=== PATIENT | female | born 1945 | race Caucasian/White ===

== ENCOUNTER 2016-09-07 09:36 | Inpatient (IN) ==
[2016-09-07 10:34] LABS: URINE SOURCE CLEAN CATCH
[2016-09-07 10:38] LABS: BILIRUBIN URINE SMALL (NEGATIVE); BLOOD URINE TRACE (NEGATIVE); COLOR YELLOW; GLUCOSE URINE NEGATIVE (NEGATIVE); LEUKOCYTES URINE MODERATE (NEGATIVE); NITRITE URINE NEGATIVE (NEGATIVE); PROTEIN URINE 30 mg/dL (NEGATIVE); SP GRAVITY URINE 1.018; TURBIDITY URINE HAZY (CLEAR); URINE MICRO REVIEW NEEDED? YES; UROBILINOGEN URINE NORMAL (NORMAL)
[2016-09-07 10:44] LABS: UR EPITHELIAL CELLS <10 /HPF (<10); URINE BACTERIA NEGATIVE /HPF; URINE CULTURE NEEDED? YES; URINE RBC 20-40 /HPF (<10); URINE WBC TNTC /HPF (<10)
[2016-09-07] MEDS ORDERED: VANCOMYCIN 1 GM/NS 1 GM/250 ML IVPB IV ONE (11:04)
[2016-09-07] MEDS ORDERED: GENTAMICIN 60 MG in NS 50 ML IV ONE (11:04)
[2016-09-07] MEDS ORDERED: NS 1,000 ML IV ONE (11:04)
[2016-09-07] MEDS ORDERED: ZOFRAN IV ONE (11:05)
[2016-09-07] MEDS ORDERED: MORPHINE IV ONE (11:05)
[2016-09-07 11:44] LABS: EOS# 0.01 X1000 (0.0-0.7); EOS% 0.1 % (0.0-10.0); HEMATOCRIT 27.7 % (37.0-47.0); HEMOGLOBIN 9.4 g/dL (12.0-16.0); IMM GRAN# 0.02 X1000 (0.0-0.04); IMM GRAN% 0.3 % (0.0-0.5); LYMPH# 0.18 X1000 (1.2-3.4); LYMPH% 2.4 % (20.5-51.1); MANUAL DIFF NEEDED? NO; MCH 34.4 PG (27-31); MCHC 33.9 g/dL (33-37); MCV 101.5 FL (81-99); MONO# 0.66 X1000 (0.11-0.59); MONO% 8.7 % (1.7-9.3); MPV 10.4 FL (7.4-10.4); NEUT% 88.5 % (42.2-75.2); PLT 104 X1000 (130-400); RBC 2.73 XMIL (4.2-5.4)
[2016-09-07 12:00] LABS: ALBUMIN 3.1 g/dL (3.5-5.0); POTASSIUM 3.1 mmol/L (3.5-5.1); TOTAL BILIRUBIN 0.72 mg/dL (0.20-1.00); TOTAL PROTEIN 5.4 g/dL (6.3-8.3)
[2016-09-07 12:12] LABS: CALCIUM 14.2 mg/dL (8.8-10.2)
--- NOTE | 2016-09-07 12:28 | PROVIDER DOCUMENTATION ---
This chart was entered by Drake Patel Scribe, acting as scribe for Jose Alberto Stapleton MD. HPI-General Adult - General Chief Complaint: Back Pain Stated Complaint: lower back pain Time Seen by Provider: 09/07/16 10:23 Source: patient Allergies/Adverse Reactions: Patient Allergies Allergy/AdvReac Type Severity Reaction Status Date / Time No Known Allergies Allergy Verified 09/07/16 09:54 Home Medications: Home Medication List Medication Instructions Recorded Confirmed Last Taken Type Levothyroxine [Synthroid] 112 microgm PO DAILY 02/20/13 09/03/16 09/02/16 History Allopurinol 300 mg PO BID 12/09/15 09/03/16 09/02/16 History Losartan [Cozaar] 100 mg PO DAILY 12/09/15 09/03/16 12/11/15 19:00 History Metoprolol Succinate E.r. [Toprol 50 mg PO DAILY 12/09/15 09/03/16 12/12/15 04: 00 History Xl] SIMVAstatin [Zocor] 40 mg PO QHS 12/09/15 09/03/16 09/02/16 History Hydrocodone/APAP 5 mg/325 mg 1 each PO Q6H PRN PRN #15 tablet 12/12/15 09/03/16 09/02/16 Rx [Arbon-5] Ciprofloxacin HCl [Cipro] 500 mg PO BID #20 tablet 09/03/16 Unknown Rx Ondansetron HCl [Zofran] 4 mg PO Q4H PRN PRN #14 tablet 09/03/16 Unknown Rx Oxycodone HCl 1 tab PO Q4-6H PRN PRN 09/03/16 09/03/16 09/03/16 History Oxycodone HCl/Acetaminophen 1 each PO Q4-6H PRN PRN #16 tablet 09/03/16 Unknown Rx [Percocet 10-325 mg Tablet] Tamsulosin [Flomax] 0.4 mg PO DAILY #04 capsule 09/03/16 Unknown Rx - History of Present Illness -Gen Adult Nature of Presenting Problems: patient is a 70 y/o F that presents to the ER with worsening back pain and abdominal pain with n/v that began 5 days ago but gotten worse over the past few days. patient was seen 4 days ago, dx with kidney stone, colitis, and uti. Patient was given antibiotic, it was changed last night due to culture report but unable to get rx yet. She has lost appetite and decreased in oral intake. She is followed by for for Large B-cell lymphoma Stage IV. Location of Pain/Injury: reports: abdomen, back Quality of Pain: reports: aching, dull Severity: reports: moderate Onset/Duration: reports: gradual, 3 days ago Timing: reports: still present, getting worse Context/Activities at Onset: reports: none Modifying Factors: worse with: movement, palpation Associated Symptoms: reports: back/neck pain, loss of appetite, nausea, vomiting , weakness. denies: chest pain, diarrhea, fever/chills, genitourinary problems , shortness of breath Recently seen or treated by another doctor?: Yes Review of Systems - Adult - REVIEW OF SYSTEMS - ADULT Constitutional: denies: chills, fever Eyes: reports: no symptoms reported Ears, Nose, Mouth & Throat: reports: no symptoms reported Cardiovascular: denies: chest pain, palpitations Respiratory: denies: cough, shortness of breath, wheezing Gastrointestinal: reports: nausea, poor appetite, vomiting. denies: abdominal pain, diarrhea Genitourinary: denies: dysuria, frequency, hematuria Musculoskeletal: reports: back pain, muscle weakness. denies: joint swelling Integumentary: reports: no symptoms reported Neurological: denies: dizziness/vertigo, headache/migraines, syncope Psychiatric: reports: no symptoms reported Endocrine: reports: no symptoms reported Hematologic/Lymphatic: reports: no symptoms reported Allergic/Immunologic: reports: no symptoms reported All Other Systems: Reviewed and Negative Past History - Adult - PAST MEDICAL HISTORY-ADULT Review of Records: reports: Old Records Reviewed, Nursing Assessment Review, Medications Reviewed Cardiovascular: reports: HTN Genitourinary: reports: kidney stones Endocrine/Immune: reports: Lymphoma (with METs to the back), thyroid disorder ( hypo) - PRIOR SURGERIES/PROCEDURES Surgical/Procedure History: reports: hysterectomy, indwelling device (port a cath), orthopedic (extremity) (right carpal tunnel), back/neck, other (right carotid) - IMMUNIZATION STATUS Childhood Immunizations: See Nurse Assessment Flu Vaccine: See Nurse Assessment - FAMILY HISTORY Family History: reviewed, not pertinent - SOCIAL HISTORY Smoking: quit greater than 1 year, cigarettes Living Situation: family Physical Exam-General - PHYSICAL EXAM-ADULT Initial Vital Signs Reviewed: Yes - CONSTITUTIONAL General Appearance: alert, mild distress, moderate distress, other (ill appearing) - EYES Eyes: PERRL/EOMI, pale conjunctivae - HEAD, EARS, NOSE, MOUTH & THROAT HENMT: normocephalic/atraumatic, pharynx normal, other (slight dry oral mucosa) - NECK Neck: full range of motion, normal inspection - RESPIRATORY Respiratory: lungs clear, normal breath sounds, no respiratory distress, no accessory muscle use - CARDIOVASCULAR Cardiovascular: regular rate, rhythm, no edema, no murmur - GASTROINTESTINAL (ABDOMEN) Abdominal Exam: normal bowel sounds, soft, no organomegaly, no pulsatile mass, tenderness (diffusely generalized), other (abdominal bruit noted and palpated) - MUSCULOSKELETAL Extremity: normal range of motion, normal inspection, no pedal edema - SKIN Integumentary: normal color, warm/dry - NEUROLOGIC Neurologic: netsuite developer II-XII nml as tested, no motor/sensory deficits - PSYCHIATRIC Psych/Mental Status: normal mood/affect, normal thought content, normal thought process, oriented x 3 Progress - PLAN OF CARE/RESULTS Progress/Plan/Lab Results: Vital Signs - 8 hr 09/07/16 09:50 09/07/16 10:38 Temperature 97.7 F Pulse Rate 79 93 H Respiratory Rate 14 18 Blood Pressure 116/53 139/63 O2 Sat by Pulse Oximetry 90 L 99 Laboratory Results - last 24 hr 09/07/16 10:25 Urine Source CLEAN CATCH Urine Color YELLOW Urine Turbidity HAZY Urine pH 5.0 Ur Specific [place] 1.018 Urine Protein 30 A Ur Glucose (Stick) NEGATIVE Ur Ketones (Stick) TRACE A Urine Blood TRACE A Urine Nitrite NEGATIVE Urine Bilirubin SMALL A Urobilinogen Dipstick NORMAL Urine Leukocytes MODERATE A Urine WBC (Auto) TNTC A Urine RBC (Auto) 20-40 A U Epithel Cells (Auto) <10 Urine Bacteria (Auto) NEGATIVE Orders Category Date Time Status UA NIMS W/REFLEX CULT [URINALYSIS] Stat Lab 09/07/16 10:25 Results URINE CULTURE [RM] Routine Lab 09/07/16 10:48 Received URINE MANUAL MICROSCOPIC [URINALYSIS] Stat Lab 09/07/16 10:25 Results 1210- took a Critical calcium level from lab on patient 1212-Hospitalist paged for admission Vital Signs Temp Pulse Resp BP Pulse Ox 09/07/16 12:13 90 137/52 98 09/07/16 10:38 93 H 18 139/63 99 09/07/16 09:50 97.7 F 79 14 116/53 90 L No Known Allergies Allergy (Verified 09/07/16 09:54) Levothyroxine [Synthroid] 112 microgm PO DAILY 02/20/13 Allopurinol 300 mg PO BID 12/09/15 Losartan [Cozaar] 100 mg PO DAILY 12/09/15 Metoprolol Succinate E.r. [Toprol Xl] 50 mg PO DAILY 12/09/15 SIMVAstatin [Zocor] 40 mg PO QHS 12/09/15 Hydrocodone/APAP 5 mg/325 mg [Arbon-5] 1 each PO Q6H PRN PRN #15 tablet Ciprofloxacin HCl [Cipro] 500 mg PO BID #20 tablet 09/03/16 Ondansetron HCl [Zofran] 4 mg PO Q4H PRN PRN #14 tablet 09/03/16 Oxycodone HCl 1 tab PO Q4-6H PRN PRN 09/03/16 Oxycodone HCl/Acetaminophen [Percocet 10-325 mg Tablet] 1 each PO Q4-6H PRN PRN #16 tablet 09/03/16 Tamsulosin [Flomax] 0.4 mg PO DAILY #04 capsule 09/03/16 Dietary Diet NPO Start WedSep 07 1104 I&O 09/06/16 09/07/16 09/08/16 06:59 06:59 06:59 Output Total 50 / 50 Balance -50 / -50 Laboratory 09/07/16 09/07/16 09/07/16 11:21 11:21 10:25 WBC 7.63 RBC 2.73 L Hgb 9.4 L Hct 27.7 L MCV 101.5 H MCH 34.4 H MCHC 33.9 RDW Std Deviation 17.7 H Plt Count 104 L MPV 10.4 Immature Gran % (Auto) 0.3 Neut % (Auto) 88.5 H Lymph % (Auto) 2.4 L [place] % (Auto) 8.7 Eos % (Auto) 0.1 Baso % (Auto) 0.0 Immature Gran # (Auto) 0.02 Neut # (Auto) 6.76 H Lymph # (Auto) 0.18 L [place] # (Auto) 0.66 H Eos # (Auto) 0.01 Baso # (Auto) 0.00 Sodium 137 Potassium 3.1 L Chloride 96 L Carbon Dioxide 30 Anion Gap 11 BUN 49 H Creatinine 1.7 H Estimated GFR/1.73 m2 30 BUN/Creatinine Ratio 29 Glucose 102 Calculated Osmolality 287 Calcium 14.2 H* Total Bilirubin 0.72 AST 49 H ALT 29 Alkaline Phosphatase 67 Total Protein 5.4 L Albumin 3.1 L Globulin 2.3 Albumin/Globulin Ratio 1.3 Amylase 29 Lipase 9 L Urine Source CLEAN CATCH Urine Color YELLOW Urine Turbidity HAZY Urine pH 5.0 Ur Specific [place] 1.018 Urine Protein 30 A Ur Glucose (Stick) NEGATIVE Ur Ketones (Stick) TRACE A Urine Blood TRACE A Urine Nitrite NEGATIVE Urine Bilirubin SMALL A Urobilinogen Dipstick NORMAL Urine Leukocytes MODERATE A Urine WBC (Auto) TNTC A Urine RBC (Auto) 20-40 A U Epithel Cells (Auto) <10 Urine Bacteria (Auto) NEGATIVE Urine Crystals Not Reportable Small Round Cells Not Reportable Urine Casts Not Reportable Urine Yeast-like Cells NONE SEEN Result Diagrams: 09/07/16 11:21 09/07/16 11:21 - CONSULTS/PCP/HOSPITALIST Notification #1 *Consult/PCP/Hospitalist*: Chayo AGARWAL admit to Dr Logan Time Discussed: 12:23 Reason/Comments: for admission Consult Disposition: Will see in ED, Admit Departure - Departure Date of Disposition Decision: 09/07/16 Time of Disposition Decision: 12:12 DIAGNOSIS: Large B-cell lymphoma, Hypercalcemia, Ureteral stone with hydronephrosis, Colitis, Dehydration, Weakness, Back pain UTI (urinary tract infection) Qualifiers: Urinary tract infection type: acute cystitis Hematuria presence: with hematuria Qualified Code(s): N30.01 - Acute cystitis with hematuria Disposition: ADMITTED INPATIENT 09 Certified Medical Emergency: Emergent Condition: Stable Referrals and Follow-Ups: Harry Roberts MD [Primary Care Provider] - - Critical Care Note This patient required my direct & personal management of CC.: Yes Total Time (mins): 50 Critical Care Statement: This patient required my direct personal management to treat or rule out processes, the absence of which, could potentiallly result in sudden, clinically significant life or limb threatening deterioration. This chart was documented by the indicated scribe, (Drake Patel, Scribe) and accurately reflects the services I performed and decisions made by me, Jose Alberto Stapleton MD, as attested by the provider's signature.
--- NOTE | 2016-09-07 14:39 | Diag Imaging Result Doc PS360 ---
US SOFT TISSUE HEAD NECK - 09/07/2016 INDICATION: please u/s thyroid/parathyroid for elevated calcium TECHNIQUE: COMPARISON: PET scan 09/01/2016 FINDINGS: The thyroid gland is slightly heterogeneous but there is no focal thyroid mass. Overall size of the thyroid is severely atrophic. The right lobe measures 3.2 x 1.3 x 1 cm. The left lobe measures 3.2 x 1.1 x 1.1 cm. The isthmus measures 2 mm. There are numerous bilateral supraclavicular enlarged lymph nodes. These were clearly documented on the recent pet scan. These measure up to 4 x 3.3 cm on the right and 3.9 x 2 cm on the left. IMPRESSION: 1. Heterogeneous thyroid gland but no thyroid masses. 2. Extensive supraclavicular and cervical lymphadenopathy as documented on the prior PET scan. Electronically signed by Tim Seals 09/07/2016 2:37 PM
[2016-09-07] MEDS ORDERED: ZOFRAN IV PRN (16:29)
[2016-09-07] MEDS ORDERED: TYLENOL PO PRN (16:29)
--- NOTE | 2016-09-07 17:13 | HISTORY AND PHYSICAL ---
PRIMARY CARE PROVIDER: Dr. Roberts. PRIMARY ONCOLOGIST: Dr. Cottrell. CHIEF COMPLAINT: Lower abdominal pain and back pain in the right lower back primarily for 3 days. HISTORY OF PRESENT ILLNESS: Ms. Geovanna Sevilla is a 70-year-old female with a medical history of stage IV lymphoma who has been followed by Dr. Cottrell. She receives chemotherapy 3 days a week. She has been complaining of lower abdominal pain and back pain primarily in the right side of her back without any food for the last 3 days. She has had associated nausea, vomiting and some diarrhea. The imaging showed that she has colitis and a left 5 mm ureteral stone. She has had a history of a left renal stone with lithotripsy [place] [address] Soto. The urinalysis shows UTI and she has received vancomycin and gentamicin in the ER. We will continue with Zosyn for her colitis and urinary tract infection. Patient also found to have an elevated calcium level of 14.2, with associated muscle jerks here and there. No obvious seizure activity. We will order a thyroid ultrasound, PTH and phosphorus. We will admit to the medical floor. Consult Dr. Soto and Dr. Cottrell. Also the patient complains of burning with urination and urinary urgency. PAST MEDICAL HISTORY: Stage IV lymphoma and history of left renal stone. Hyperlipidemia, hypothyroidism, gout, possible CKD. SURGICAL HISTORY: Hysterectomy, carpal tunnel surgery. Back surgery x2 of the lower back. SOCIAL HISTORY: She is with 2 children. Works at [employer]. Denies tobacco, alcohol or illicit drug use. FAMILY HISTORY: Noncontributory. REVIEW OF SYSTEMS: All are negative, except for those mentioned above in the HPI. She has also had some mild shortness of breath with unsteady gait over the last 7 days. ALLERGIES: No known drug allergies. HOME MEDICATIONS: Allopurinol 300 mg p.o. twice daily. Cipro 500 mg p.o. twice daily. [place] 5, 1 tab p.o. every 6 hours p.r.n., Synthroid 112 mcg p.o. daily. Cozaar 100 mg p.o. daily. Toprol- XL 50 mg p.o. daily. Zofran 4 mg p.o. every 4 hours p.r.n., Percocet 10, 1 tab p.o. every 4-6 hours p.r.n., simvastatin 40 mg p.o. nightly and Flomax 0.4 mg p.o. daily. PHYSICAL EXAMINATION: VITAL SIGNS: Temperature 97.7 degrees, heart rate 81-103, respiratory rate 18, blood pressure 146/87. O2 saturation 96% on 2 L nasal cannula. She is 5 feet 1 inch tall, 104 pounds. BMI is 19.7. GENERAL: Ms. Geovanna Sevilla is a 70-year-old female. She is in no acute distress. She is able to answer most questions appropriately. HEENT: Atraumatic, normocephalic. Pupils equal, round, reactive to light. Extraocular movements intact. Mucous membranes are dry. NECK: No JVD, right carotid bruit noted. CARDIOVASCULAR: S1, S2. Regular rate and rhythm. No rubs, gallops, murmurs. PULMONARY: Clear to auscultation. Bilateral breath sounds. No accessory muscle use or work of breathing noted. Currently on 2 L nasal cannula. ABDOMEN: Positive bowel sounds x4. Tender in bilateral lower quadrants. Abdominal bruit noted upon auscultation and likely aortic. SKIN: Warm, dry, intact. NEUROLOGIC: A and O x4. Moves all extremities equally. LABORATORY DATA: White blood cells 7000, hemoglobin 9, hematocrit 27. Platelet count 104,000. Sodium 137, potassium 3.1, BUN 49, creatinine is 1.7, glucose 102, calcium of 14.2. Phosphorus is 3.6, bilirubin 0.72, AST 49, ALT 29, albumin 3.1. Amylase 29, lipase 9. Urinalysis: 30 protein, trace ketones, trace blood, small bilirubin, moderate white blood cells, 20-40 red blood cells. Bacteria is negative. IMAGING: On 09/03/2016, she had an abdominal pelvic CT which revealed enlarged abdominal and pelvic lymph nodes consistent with lymphoma, 5 mm stone distal left ureter and the ureterovesical junction with mild hydronephrosis. Possible mild colitis involving the descending and sigmoid colon with diverticulosis. Today, she had a thyroid ultrasound which showed no thyroid masses. It did show extensive supraclavicular and cervical lymphadenopathy. ASSESSMENT AND PLAN: 1. Hypercalcemia. We will do IV fluid hydration. Thyroid ultrasound has already been performed with no masses. We will order a phosphorus, PTH and another calcium in the morning. She does have some symptoms with muscle jerking and monitor for seizure activity. 2. Left 5 mm distal ureteral stone with mild hydronephrosis. She has had 1 in the past on the left that Dr. Soto performed lithotripsy on. We will reconsult him. 3. Possible urinary tract infection. She does have urinary burning and urgency. We will continue with Zosyn for now. 4. Colitis per CT on the . Continue with Zosyn. This could be secondary to what is causing the abdominal pain that she has. 5. Nausea, vomiting and diarrhea. Again, we will do IV fluid hydration, antiemetics as needed. 6. Lymphoma stage IV. Receives chemotherapy 3 times per week. We will reconsult Dr. Cottrell. 7. Deep venous thrombosis prophylaxis. SCDs. Dictated by STEFANO Barfield for Patrick Mccullough MD cc: STEFANO Barfield MD Michael C. Donham, MD Heather Shah, MD Sergey S. Ananyev, MD [facility]
[2016-09-07] MEDS: ZOSYN 3.375 GM/NS 3.375 GM/50 ML IVPB IV SCH ×2 (17:32→22:55)
[2016-09-07] MEDS: NS 1,000 ML IV SCH ×2 (17:32→23:41)
[2016-09-07] MEDS: ZYLOPRIM PO SCH (22:12)
[2016-09-07] MEDS: PERCOCET-10 PO PRN (22:12)
[2016-09-07] MEDS: ZOCOR PO SCH (22:13)
[2016-09-07] MEDS: PRILOSEC PO SCH (22:13)
[2016-09-07] MEDS ORDERED: LOVENOX SUBQ ONE (22:37)
[2016-09-07] MEDS ORDERED: ASPIRIN PO ONE (22:37)
[2016-09-07] MEDS ORDERED: LOPRESSOR PO ONE (22:37)
[2016-09-08 00:35] LABS: POTASSIUM 3.3 mmol/L (3.5-5.1)
[2016-09-08 00:43] LABS: CALCIUM 13.3 mg/dL (8.8-10.2)
[2016-09-08] MEDS: NS 1,000 ML IV SCH ×3 (03:24→21:18)
[2016-09-08] MEDS: ZOSYN 3.375 GM/NS 3.375 GM/50 ML IVPB IV SCH ×5 (03:24→22:30)
--- NOTE | 2016-09-08 05:24 | EKG Report ---
Test Performed on : 09/07/2016 11:59:29 PM Test Reason : Tachycardia Blood Pressure : / mmHG Vent. Rate : 083 BPM Atrial Rate : 083 BPM P-R Int : 174 ms QRS Dur : 108 ms QT Int : 364 ms P-R-T Axes : 042 031 -65 degrees QTc Int : 427 ms Normal sinus rhythm. with sinus arrhythmia. Incomplete left bundle branch block Nonspecific T wave abnormality Abnormal ECG When compared with ECG of 07-SEP-2016 22:13, (Unconfirmed) No significant change was found Confirmed by Nakia Morales MD ([id number]) on 09/08/2016 6:04:10 AM
--- NOTE | 2016-09-08 05:24 | EKG Report ---
Test Performed on : 09/07/2016 8:52:15 PM Test Reason : Repeat EKG for A-Fib with RVR Blood Pressure : / mmHG Vent. Rate : 162 BPM Atrial Rate : 065 BPM P-R Int : 000 ms QRS Dur : 106 ms QT Int : 288 ms P-R-T Axes : 000 047 249 degrees QTc Int : 472 ms Atrial fibrillation. with rapid ventricular response. Incomplete left bundle branch block Marked ST abnormality, possible inferolateral subendocardial injury Abnormal ECG When compared with ECG of 03-SEP-2016 13:40, (Unconfirmed) Significant changes have occurred Confirmed by Nakia Morales MD ([id number]) on 09/08/2016 6:04:04 AM
--- NOTE | 2016-09-08 05:24 | EKG Report ---
Test Performed on : 09/07/2016 10:13:50 PM Test Reason : Tachycardia Blood Pressure : / mmHG Vent. Rate : 099 BPM Atrial Rate : 099 BPM P-R Int : 174 ms QRS Dur : 108 ms QT Int : 340 ms P-R-T Axes : 050 027 -37 degrees QTc Int : 436 ms Normal sinus rhythm. Incomplete left bundle branch block Nonspecific T wave abnormality Abnormal ECG When compared with ECG of 07-SEP-2016 20:52, (Unconfirmed) Significant changes have occurred Confirmed by Nakia Morales MD ([id number]) on 09/08/2016 6:04:07 AM
[2016-09-08] MEDS: SYNTHROID PO SCH ×2 (05:39→09:22)
[2016-09-08] MEDS: PERCOCET-10 PO PRN ×2 (05:39→16:59)
[2016-09-08 07:21] LABS: BASO% 0.1 % (0.0-0.8); EOS# 0.02 X1000 (0.0-0.7); EOS% 0.2 % (0.0-10.0); HEMATOCRIT 26.2 % (37.0-47.0); HEMOGLOBIN 8.7 g/dL (12.0-16.0); IMM GRAN# 0.03 X1000 (0.0-0.04); IMM GRAN% 0.3 % (0.0-0.5); LYMPH# 0.21 X1000 (1.2-3.4); LYMPH% 2.4 % (20.5-51.1); MANUAL DIFF NEEDED? YES; MCH 34.3 PG (27-31); MCHC 33.2 g/dL (33-37); MCV 103.1 FL (81-99); MONO# 0.64 X1000 (0.11-0.59); MONO% 7.2 % (1.7-9.3); MPV 11.1 FL (7.4-10.4); NEUT% 89.8 % (42.2-75.2); PLT 90 X1000 (130-400); RBC 2.54 XMIL (4.2-5.4)
[2016-09-08 07:26] LABS: INR 1.07; PROTIME 11.3 Seconds (9.2-11.7); PTT 32.1 Seconds (22.0-36.0)
[2016-09-08 07:47] LABS: ALBUMIN 2.6 g/dL (3.5-5.0); CALCIUM 12.3 mg/dL (8.8-10.2); MAGNESIUM 1.9 mg/dL (1.5-2.7); POTASSIUM 3.2 mmol/L (3.5-5.1); TOTAL BILIRUBIN 0.59 mg/dL (0.20-1.00); TOTAL PROTEIN 4.3 g/dL (6.3-8.3)
[2016-09-08 07:48] LABS: FREE T4 0.49 ng/dL (0.93-1.70)
[2016-09-08 08:23] LABS: BANDS 36 % (0-1); MONO 2 % (1-9)
--- NOTE | 2016-09-08 08:49 | CONSULTATION ---
DATE OF CONSULTATION: 09/08/2016 ATTENDING AND REFERRING PHYSICIAN: Hospitalist. HISTORY OF PRESENT ILLNESS: This 70-year-old female has a history of advanced B -cell lymphoma, currently undergoing chemotherapy, and renal lithiasis. She underwent left extracorporeal shockwave lithotripsy in December of 2015. She developed left-sided pain, both in the abdomen and flank. Her CT scan revealed a 5 mm left distal stone with mild hydronephrosis, also colitis involving the descending and sigmoid colon. Also noticed was diverticulosis. The patient currently states she has mild abdominal pain but not severe flank pain. The patient was started on Flomax. She denies any other urologic surgery. She has an occasional urinary tract infection. PAST MEDICAL HISTORY: Gout, hypertension, hypothyroidism, elevated cholesterol , coronary artery disease. CURRENT MEDICATIONS: Are documented on the chart. PAST SURGICAL HISTORY: Left shockwave lithotripsy, lymph node biopsies. SOCIAL HISTORY: No tobacco or alcohol use. ALLERGIES: No known drug allergies. REVIEW OF SYSTEMS: She denies history of diabetes, strokes, or seizures. She states she is getting chemotherapy. PHYSICAL EXAMINATION: General: A thin, age apparent, normally developed, white female, oriented in all ways and cooperative. HEENT: Normal for age. Lungs: Clear. Cardiovascular: Regular rate and rhythm. Abdomen: Diffuse tenderness, mainly on the left side. No guarding or rebound. Genitourinary: Examination is deferred until surgery. Extremities: No clubbing, cyanosis, or edema. Neurologic: No focal deficits. LABORATORY EVALUATION: Has a white count of 8.92, hemoglobin 8.7, hematocrit of 26.2, and platelets are 90,000. Serum electrolytes have a sodium of 144, potassium 3.2, chloride 106, bicarb 24, BUN 49, creatinine 1.6. Urine culture is pending. A CT stone search is as noted in the HPI. IMPRESSION: 1. Left distal ureteral stone, currently with minimal symptoms. 2. B-cell lymphoma. 3. Colitis. RECOMMENDATIONS: Discussed with patient and cystoscopic exam, left ureteroscopy, laser lithotripsy of stone, basket extraction of fragments versus trying to spontaneously pass the stone. The 5 mm stone probably has a 50% chance. The patient and state they want to think about that. Thank you for this consultation. cc: MD KRISTOPHER White
[2016-09-08] MEDS ORDERED: TOPROL XL PO SCH (09:00)
[2016-09-08] MEDS: ZYLOPRIM PO SCH ×2 (09:05→21:19)
[2016-09-08] MEDS: FLOMAX PO SCH (09:05)
[2016-09-08] MEDS: PRILOSEC PO SCH ×2 (09:05→21:18)
[2016-09-08] MEDS: COZAAR PO SCH (10:03)
[2016-09-08] MEDS: LOPRESSOR PO SCH ×2 (10:04→21:19)
[2016-09-08] MEDS ORDERED: CALMOSEPTINE OINTMENT TOP PRN (10:22)
--- NOTE | 2016-09-08 10:49 | CONSULTATION ---
DATE OF CONSULTATION: 09/08/2016 INDICATION FOR CONSULTATION: New-onset atrial fibrillation, as well as elevation of her troponin. HISTORY OF PRESENT ILLNESS: Ms. Sevilla is a 70-year-old white female with a history of a B-cell lymphoma, who previously was under treatment last year, and then apparently had to restart treatment this year, when apparently she was found to have some recurrence. She is a very poor historian this morning as she seems to be quite fatigue and is difficult to keep on task. She reports presenting to the ER for complaints of lower abdominal pain that seems to have been going on for the last few days or so. She has had very little oral intake over that time period, and has nausea and vomiting associated with this. Apparently last night, there were some complaints of back pain as well. She has a history of nephrolithiasis in the past with lithotripsy [place] [address] Soto. She noted some jerking muscle movements as well that have been causing her some difficulties, and is unable to really give a time period as to when those have been an issue. She has not had any chest pain or shortness of breath, and has had no palpitations either prior to this hospitalization or during this hospitalization. PAST MEDICAL HISTORY: Significant for: 1. Diffuse large B-cell lymphoma. This is being taken care of by Dr. Shayla Cottrell. 2. Coronary artery disease with history of myocardial perfusion imaging having been performed in 02/2015, demonstrating a moderate-size, moderate severity, reversible perfusion defect in the inferior and inferior apical wall, suggestive of ischemia. This was subsequently followed up in 03/2015 with heart catheterization that demonstrated a chronically occluded right coronary with well-developed collateralization. Medical treatment recommended. 3. Hypertension. 4. Peripheral vascular disease with history of right carotid endarterectomy in 02/2013. 5. Hypothyroidism. 6. Gout. 7. Possible chronic kidney disease. 8. Hyperlipidemia. SOCIAL HISTORY: , 2 children, works at [employer]. No tobacco, alcohol, or illicit drugs. FAMILY HISTORY: Significant for hypertension. REVIEW OF SYSTEMS: A 10-system review of systems is negative, except for those things mentioned in the HPI. PHYSICAL EXAMINATION: Vital Signs: She is afebrile on this visit. Heart rates predominantly appear to be in the 60s to 90s. Periodically last night, she had some heart rates in the 100s to 130s. Blood pressure most recently is 107/40. General: She is in no acute distress. She is somewhat somnolent and difficult to keep on task. HEENT: Oropharynx is moist. Normal dentition. Eye examination shows pink conjunctivae, white sclerae. Neck: No obvious thyromegaly or thyroid tenderness. Cardiovascular: She seems to be in a regular rate and rhythm. She has no obvious murmurs. She has no S3. She has no S4. She has no lower extremity edema. Chest: Relatively clear to auscultation bilaterally. No increased work of breathing. Abdomen: Soft, nontender, nondistended. She has no obvious organomegaly. Skin: Warm and dry throughout. Neurological: Moving all extremities well. Cranial nerves II through XII are intact without any sensation deficits. Psychiatric: She is somewhat somnolent and difficult to keep on task , but seems to answer questions appropriately when able to. IMAGING AND LABORATORY DATA: EKG last night at 2358 shows sinus rhythm, rate of 83 beats per minute, somewhat flattened T-waves throughout. No signs of infarct. No signs of active ischemia. EKG at 2212 yesterday shows sinus rhythm, rate of 99 beats per minute. Again, somewhat flattened T-waves. No signs of infarct. No signs of ischemia. EKG yesterday at 2051 shows what appears to be atrial fibrillation with rapid ventricular response, rate of 162 beats per minute. She does have ST-segment depression in the lateral and inferior leads, suggesting possible rate-related ischemia. She had a head and neck ultrasound. This demonstrated heterogenous thyroid gland with no masses, extensive supraclavicular and cervical lymphadenopathy as noted on previous testing. Laboratory data shows a white count of 8.9, hematocrit 26.2, platelet count is 90,000. Sodium 144, potassium is 3.2, her BUN is 49, creatinine is 1.6, her calcium on presentation was 14.2, with the most recent of 12.3. Cardiac enzymes initially were 0.622 for the troponin, with the most recent of 0.633, and that is with approximately 10 hours between checks. TSH 5.51, with a free T4 of 0.49. PTH is low at 13. Her UA yesterday had too numerous to count WBCs, moderate leukocytes, trace amount of blood. Serum alcohol was negative. ASSESSMENT: 1. New-onset atrial fibrillation. 2. Elevated troponin, likely suggestive of supply demand mismatch/demand ischemia from possibly rate-related versus also possibly secondary to her other comorbidities, including possible sepsis. 3. Clostridium difficile colitis. 4. UTI PLAN: At this point, I would recommend resuscitation of the patient from her other issues, including her hypercalcemia, her likely volume depletion, her Clostridium difficile and likely UTI. She currently is on antibiotics. I will initiate aspirin therapy in the patient. She is a fall risk per her, so I would be hesitant to initiate anticoagulation, and given her current heart rate issues with rates in the 50s at the time my examination, I would be hesitant to initiate AV justin blockers. We will continue to follow the patient for now, but presently I would initiate aspirin and order an echo. cc: Duke Cunningham MD MTDD
[2016-09-08] MEDS ORDERED: MIACALCIN SUBQ ONE (11:54)
[2016-09-08] MEDS: ASPIRIN PO SCH (11:58)
[2016-09-08] MEDS ORDERED: ZOMETA 4 MG in NS 100 ML IV ONE (12:30)
--- NOTE | 2016-09-08 13:29 | PROGRESS NOTE ---
DATE: 09/08/2016 SUBJECTIVE: Patient reports mild to moderate back pain. Also reports still having diarrhea all day long, probably more than 10 times until now. Denies any chest pain, any difficulty breathing, any sensation of palpitations. OBJECTIVE: Vitals: Temperature 98.4, heart rate 63, respiratory rate 20, blood pressure 107/40, O2 saturation 99% on room air. General Examination: This is a chronically ill- looking and frail, 70-year-old female, lying in bed, in no acute distress. HEENT: Head is normocephalic, atraumatic. Anicteric sclerae, pale conjunctivae. Mucous membranes moist. Neck: Supple. No JVD noted. No carotid bruits. No lymphadenopathy. No thyromegaly. Cardiovascular Exam: S1-S2 heard. No murmurs, gallops, or rubs. Regular rate and rhythm. Respiratory: Clear bilaterally to auscultation. No work of breathing or using accessory muscles. Abdomen: Soft, a little distended. Tenderness in bilateral lower quadrants. There is no signs of peritoneal irritation. Bowel sounds present. No organomegaly. Extremities: No clubbing, cyanosis, or edema. Peripheral pulses present in both legs. Neurological Exam: Patient alert, oriented x4. Able to move 4 extremities. LABORATORY DATA: White cell count 8.92, hemoglobin 8.7, hematocrit 26.2, platelets 90. BMP shows sodium 144, potassium 3.2, chloride 106, bicarbonate 24, BUN 49, creatinine 1.6 and calcium 12.3. ASSESSMENT AND PLAN: 1. Clostridium difficile colitis. Because of nausea, vomiting, abdominal pain, a CT that was originally done on September 03 showed colitis and now that the results of Clostridium difficile have become positive, we are going to start with Flagyl 500 mg p.o. 3 times per day. We are going to continue with the same management. 2. Left ureteral stones with mild hydronephrosis. Dr. Brown from Urology has evaluated this patient and they mentioned that this patient will need cystoscopy exam with left ureteroscopy and laser lithotripsy of the stone, but family decided to first think about it. We will follow recommendations from the cues. 3. Lymphoma stage IV. Patient has received so far 3 cycles of chemotherapy. We do not know if this patient will need more chemo or not. We have reconsulted Dr. Shayla Cottrell from Oncology. 4. Severe hypercalcemia. This is most likely related to lymphoma, so we decided to give this patient Zoledronic acid 4 mg IV and also some calcitonin. Will check BMP tomorrow to see the calcium levels. 5. Paroxysmal atrial fibrillation with rapid ventricular response. Dr. Cunningham from Cardiology has recommended for this patient to not initiate any anticoagulation because of high risk of falling. He recommends to start this patient on aspirin. Because his current heart rate is 60 and 50s, he is not going to start any AV justin blockers at this time. We will follow his recommendations. 6. Positive troponins. That could be most likely related to mismatch and demand supply of blood. The reason is not necessarily secondary to acute coronary syndrome, but also secondary to sepsis. Also secondary to infection like Clostridium difficile colitis. We continue following this patient closely. 7. Possible urinary tract infection. Patient has been started on Zosyn. The results of the urine culture is still pending. We will continue with the same management by now. 8. Intractable nausea and vomiting, we will continue with IV fluids. Medication for nausea. cc: Saulo Foreman MD MTDD
[2016-09-08] MEDS: FLAGYL PO SCH ×2 (13:41→21:18)
--- NOTE | 2016-09-08 18:15 | CONSULTATION ---
DATE OF CONSULTATION: 09/08/2016 REASON FOR CONSULT: Diffuse large B-cell lymphoma, patient known to us. HISTORY OF PRESENT ILLNESS: Ms. Geovanna Sevilla is a 70-year-old, female , who is known to us as we are currently treating her for diffuse large B-cell lymphoma. She has most recently been in our office on 09/01/2016. At that time we had to hold her chemotherapy due to cytopenias. Patient is currently receiving BENDEKA and Rituxan. The patient does have relapsed disease and actually finished R-CHOP earlier this year. When the patient was in our office on 09/01 she had a mildly elevated calcium at 10.5 which corrected to 11.0. We had the patient return for some IV hydration. We also checked a PTH at that time. Subsequently the patient presented to the emergency department complaining of lower abdominal pain as well as some back pain. She was found to have a urinary tract infection and started on IV antibiotics. She had a scan done at that time which showed have some colitis as well as a 5 mm ureteral stone. The patient was discharged home from the ER to follow up as an outpatient. She has now re- presented to the emergency room again complaining of lower abdominal pain as well as pain in the right lower back. The patient was also having some muscle jerks as well. She has now been admitted to the hospital. She was found to have a quite elevated calcium of 14.2 upon admission. She also has elevated creatinine at this time. EKG done revealed the patient to have new onset of atrial fibrillation with rapid ventricular rate. She has also tested positive for C difficile. Currently, the patient is lying in the hospital bed rather drowsy. Her is at bedside. PAST MEDICAL HISTORY: 1. Relapsed diffuse large B-cell lymphoma. 2. Coronary artery disease. 3. Hypertension. 4. Hypothyroidism. 5. Hyperlipidemia. 6. Chronic lower back pain. 7. Carpal tunnel syndrome. PAST SURGICAL HISTORY: 1. Right-sided carotid enterectomy. 2. Hysterectomy. 3. Carpal tunnel surgery. 4. Back surgery x2. 5. Right cervical node excision. 6. Right neck surgery. SOCIAL HISTORY: The patient is . She lives with her spouse. She until most recently has been working full-time to part-time at [employer]. The patient also has 2 children. She is a former smoker and stopped smoking 2009. She has a 30 pack-year history. The patient is a social drinker previously. She denies any illicit drug use. FAMILY HISTORY: She has a mother who of heart disease at the age of 74. She has a sister who is alive and currently has COPD. The patient denies any history of cancer. REVIEW OF SYSTEMS: Fourteen point review of systems has been completed and is negative except for what was expressed in the HPI. PHYSICAL EXAMINATION: Vital Signs: Temperature 98.4 degrees, heart rate 63, respirations 20. Blood pressure 107/40. O2 saturations 99% on 2 L nasal cannula. General: An ill-appearing female, lying in the hospital bed. She is rather lethargic and goes in and out of resting during the interview. Her is at bedside. HEENT: Head appears to be normocephalic, atraumatic. Eyes: When they are open, appeared to be pupils are equal, round, reactive. Ears, nose, throat, neck, and mouth: Neck is supple. Trachea is midline. Gross auditory acuity is intact. Oral mucosa appears to be normal. Cardiovascular: Regular rate and rhythm at this time. S1, S2 heard. Respiratory: Chest clear to auscultation bilaterally. Normal respiratory effort. Gastrointestinal: Abdomen is soft, nontender. Nondistended. Bowel sounds are positive. Musculoskeletal: No obvious bony abnormalities. Extremities: Some trace bilateral extremity edema. Neurologic: The patient is definitely arousable. She just seems like she is more tired than has some sort of neurologic issue at this time. No obvious focal motor deficits noted. LABS AND STUDIES: Today patient's white count is 8.92, hemoglobin is 8.7, hematocrit 26.2, platelets are 90,000. Sodium is 144, potassium 3.2, chloride 106, CO2 24, BUN 49, creatinine 1.6. Calcium is 12.3, corrected is 13.4. Troponin is 0.633. TSH is 5.51 and free T4 is 0.49 and PTH is low at 13. Urinalysis is positive for urinary tract infection. Magnesium is 1.9 and phosphorus is 4.1. Ultrasound of the head and neck reveals no thyroid masses and that she has extensive supraclavicular and cervical lymphadenopathy. ASSESSMENT AND PLAN: 1. Relapsed diffuse large B-cell lymphoma. The patient has most recently been receiving BENDEKA and Rituxan. She recently had a PET scan on 09/01/2016 which shows that while there has been substantial improvement in the region of the oropharynx with resolution of the bilateral cervical nodes, there continues to be supraclavicular nodes as well as new bilateral axillary, mediastinal, abdominal and pelvic nodes. When patient was in last we had to hold treatment due to cytopenias. She has new disease on her most recent PET scan and will require a change in treatment once she recovers from her current acute illness. 2. Hypercalcemia. Believed to be related to malignancy. Agree with initiating Zometa at this time. Continue IV hydration. Continue to monitor daily. 3. C difficile. Patient will continue on metronidazole at this time. 4. Ureteral stone with mild hydronephrosis. Patient has been evaluated by Urology and the plan at this time is to see if the stone will pass on its own. 5. Dehydration. Continue IV hydration as per above. 6. Urinary tract infection. Patient will continue with IV antibiotics. She is currently receiving Zosyn. Thank you for consulting us on Ms. Sevilla and we will continue to follow along and adjust our treatment plan per hospital course. Dictated by TRACY Walker for Shayla Cottrell MD cc: Shayla Cottrell MD I have seen and examined the patient and agree with above A/P. MTDD
[2016-09-08] MEDS: ZOCOR PO SCH (21:19)
[2016-09-09] MEDS: ZOSYN 3.375 GM/NS 3.375 GM/50 ML IVPB IV SCH ×4 (03:40→22:45)
--- NOTE | 2016-09-09 05:48 | EKG Report ---
Test Performed on : 09/08/2016 00:37:17 AM Test Reason : No Order in [employer] Blood Pressure : / mmHG Vent. Rate : 095 BPM Atrial Rate : 095 BPM P-R Int : 186 ms QRS Dur : 110 ms QT Int : 324 ms P-R-T Axes : 021 025 160 degrees QTc Int : 407 ms NSR NL axis Poor R-wave progression V1-V3 Non-specific high-lateral ST depression/change - slightly worse than previous Nonspecific ST abnormality far lateral lead V6 - slightly worse than previous Nonspecific ST and T wave abnormality - precordial (no signifcant change) Clinical Correlation advised Confirmed by Anand Cunningham DO ([id number]) on 09/11/2016 12:58:04 PM
[2016-09-09] MEDS: SYNTHROID PO SCH (06:26)
[2016-09-09] MEDS: FLOMAX PO SCH (08:07)
[2016-09-09] MEDS: COZAAR PO SCH (08:08)
[2016-09-09] MEDS: LOPRESSOR PO SCH ×2 (08:08→21:01)
[2016-09-09] MEDS: ASPIRIN PO SCH (08:11)
[2016-09-09] MEDS: PERCOCET-10 PO PRN ×2 (08:11→12:54)
[2016-09-09] MEDS: FLAGYL PO SCH ×3 (08:12→17:31)
[2016-09-09] MEDS: ZYLOPRIM PO SCH ×2 (08:13→21:01)
[2016-09-09] MEDS: PRILOSEC PO SCH ×2 (08:13→21:01)
[2016-09-09] MEDS: NS 1,000 ML IV SCH ×3 (10:38→21:08)
[2016-09-09 10:51] LABS: BASO% 0.3 % (0.0-0.8); CALCIUM 11.2 mg/dL (8.8-10.2); EOS# 0.01 X1000 (0.0-0.7); EOS% 0.1 % (0.0-10.0); HEMATOCRIT 28.4 % (37.0-47.0); HEMOGLOBIN 9.5 g/dL (12.0-16.0); IMM GRAN# 0.22 X1000 (0.0-0.04); IMM GRAN% 1.7 % (0.0-0.5); LYMPH# 0.19 X1000 (1.2-3.4); LYMPH% 1.4 % (20.5-51.1); MANUAL DIFF NEEDED? YES; MCH 34.4 PG (27-31); MCHC 33.5 g/dL (33-37); MCV 102.9 FL (81-99); MONO# 1.17 X1000 (0.11-0.59); MONO% 8.8 % (1.7-9.3); NEUT% 87.7 % (42.2-75.2); PLT 64 X1000 (130-400); POTASSIUM 3.1 mmol/L (3.5-5.1); RBC 2.76 XMIL (4.2-5.4)
[2016-09-09 11:04] LABS: BANDS 18 % (0-1); LYMPHS 2 % (21-51); MONO 6 % (1-9)
--- NOTE | 2016-09-09 12:15 | PROGRESS NOTE ---
DATE: 09/09/2016 SUBJECTIVE: Patient reports still mild pain in the back. As per family, who is at bedside, because this patient is a little bit lethargic they said that she is still having diarrhea but definitely less in comparing with yesterday. OBJECTIVE: Vital Signs: Temperature 98.3 degrees, heart rate 98, respiratory rate 27, blood pressure 110/61. O2 saturation 98% on room air. General: This a chronically ill-looking and frail, 70-year-old female lying in bed, in no acute distress. HEENT: Head is normocephalic, atraumatic. Anicteric sclerae and pale conjunctivae. Mucous membranes moist. Neck: Supple. No JVD noted. No carotid bruits. No lymphadenopathy. No thyromegaly. Cardiovascular: S1, S2 heard. No murmurs, gallops, or rubs. Regular rate and rhythm. Respiratory: Clear bilaterally to auscultation. No work of breathing or using accessory muscles. Abdomen: Soft, nontender to palpation. Bowel sounds present. No organomegaly. Extremities: No clubbing, cyanosis, or edema. Peripheral pulses present in both legs. Neurological: Patient is sleepy, but does follow simple commands. Moves 4 extremities. LABORATORY DATA: White cell count 13.24, hemoglobin 9.5, hematocrit 28.4, platelets 64,000. BMP shows potassium 3.1 with calcium 11.2, and creatinine 1.6. ASSESSMENT AND PLAN: 1. Clostridium difficile colitis. The patient is having bowel movements although definitely less in comparing with yesterday. We will continue with Flagyl 500 mg p.o. 2 times daily. 2. Left ureteral stones with mild hydronephrosis. Dr. Brown from Urology has seen this patient and they said that they are going to think about a procedure to remove the stones. 3. Lymphoma stage IV. This patient's primary oncologist is Dr. Cottrell. She has diffuse large B- cell lymphoma. In the consult, they report that last chemotherapy they held due to cytopenias. At this point, we will leave to Dr. Cottrell and her team to take care of this patient. 4. Hypercalcemia. Patient after he received Zometa and also calcitonin definitely the calcium is much better. It is 11.2 today. We will continue with IV fluids. 5. Paroxysmal atrial fibrillation. Dr. Cunningham from Cardiology has recommended to start the patient on aspirin and because of high risk of falling, we do not think this patient needs to be on any anticoagulation. 6. Positive troponins. Aware. 7. Possible urinary tract infection. Patient is on Zosyn. The urine culture shows mixed krishna. At this point, I prefer to continue with Zosyn. cc: Saulo Foreman MD
--- NOTE | 2016-09-09 17:13 | PROGRESS NOTE ---
DATE: 09/09/2016 SUBJECTIVE: Ms. Sevilla continues to be somewhat weak. She says she feels a little bit better than yesterday but is an extremely poor historian. PHYSICAL: Vital Signs: She is afebrile. Heart rates documented primarily in the 60s to 90s. She did have a 42 documented at 4 a.m. Blood pressure 106/45. Generally: No acute distress. Cardiovascular: She sounds to be in a regular rate and rhythm. Telemetry currently seems to show sinus. She has no lower extremity edema. Chest: Clear to auscultation bilaterally. She has no increased work of breathing. Abdomen: Soft, nontender, nondistended. She has no obvious organomegaly. PERTINENT DATA: Telemetry on the at 8 p.m. shows atrial fibrillation. She does not really appear to have any other significant arrhythmias. There was no documentation of a 40 in her telemetry file. Laboratory data shows a white count of 13.2, hematocrit 28, platelet count 64, which is down from 90. Sodium is 143, potassium 3.1, BUN 50, creatinine 1.6. ASSESSMENT: 1. Urinary tract infection. 2. Clostridium difficile colitis. 3. New onset atrial fibrillation with elevated troponin likely secondary to non ST-elevation myocardial infarction type 2. PLAN: I would continue on aspirin. She seems to be maintaining sinus rhythm since her initial bout. We will continue with current therapy for the time being. cc: Duke Cunningham MD
--- NOTE | 2016-09-09 17:36 | PROGRESS NOTE ---
DATE: 09/09/2016 SUBJECTIVE: Ms. Sevilla reports that she is feeling a little bit better today. OBJECTIVE: Vital Signs: Temperature 98.3 degrees, heart rate 98, respirations 27, blood pressure 110/61, O2 saturation 98% on 2 L nasal cannula. Laboratory: White blood cells 13.24, hemoglobin 9.5, hematocrit 28.4, platelets 64,000. Sodium 143, potassium 3.1, chloride 105 , CO2 19, BUN 50, creatinine 1.6, glucose 118, calcium 11.2, corrected calcium around 11.9 to 12.3. CV: Regular rate and rhythm. S1, S2 heard. Respiratory: Chest clear to auscultation. Gastrointestinal: Abdomen is soft. Some diffuse abdominal tenderness. No rebounding or guarding. Positive bowel sounds. Extremities: No edema noted. ASSESSMENT AND PLAN: 1. Relapsed diffuse large B-cell lymphoma. Most recent PET scan had new disease. Discussed starting Rituxan and Revlimid once the patient is released from the hospital and has recovered from her acute issues. 2. Hypercalcemia. Improved after receiving Zometa and calcitonin yesterday. We will plan to recheck tomorrow and if need be, repeat Zometa. 3. Clostridium difficile. Continue current management. 4. Mild hydronephrosis. As per urology. 5. Dehydration. Continue IV hydration. 6. Urinary tract infection. Continue current IV antibiotics. Dictated by TRACY Walker for Shayla Cottrell MD cc: Shayla Cottrell MD I have seen and examined the patient and agree with above A/P. Shayla Cottrell MD [facility]
--- NOTE | 2016-09-09 19:25 | ECHO REPORT ---
ORDER DATE: 09/08/2016 INTERPRETING PHYSICIAN: Dr. Tucker REQUESTING PHYSICIAN: CLINICAL INDICATIONS: A 70-year-old female with new onset atrial fibrillation with troponin elevation. M-MODE MEASUREMENTS: Right ventricle: 3.2 cm. Left ventricle end diastole: 3.3 cm. Left ventricle end systole: 2.1 cm. Posterior wall: 1.3 cm. Interventricular septum: 1.2 cm. Left atrium: 4.3 cm. Aortic root: 3.0 cm. SUMMARY OF 2-DIMENSIONAL IMAGING: The left ventricular function appears to be generally normal. Ejection fraction 68%. There is a focal area of wall motion abnormality involving the basal inferior wall and also the basal interventricular septum. This is suspicious for coronary heart disease. The right ventricle appears to be mildly enlarged. It shows good function. There is a mild degree of concentric LVH. The left atrium is probably at the upper limits of normal. The mitral annulus shows moderate calcification. Color flow mapping indicates a mild degree of regurgitation. Pulse wave Doppler of mitral inflow shows reversal of the E and the A ratio. The ratio is 0.7. Tissue Doppler of septal and lateral mitral annulus averages 5 cm per second. There is impaired left ventricular relaxation. There is sclerosis of the aortic valve without stenosis. There is no regurgitation. The tricuspid valve looks normal with a mild degree of regurgitation. Pulmonary pressure estimated at 27 mmHg. The pulmonic valve looks normal. Color flow mapping unremarkable. There is no pericardial effusion, masses or thrombus. IMPRESSION: In summary, this study shows: 1. Preserved left ventricular systolic function. Ejection fraction 68% with focal area of wall motion abnormality involving the basal inferior wall. 2. Impaired left ventricular relaxation. 3. Moderate calcification of mitral annulus. 4. Pulmonary pressure estimated at 27 mmHg. 5. Sclerosis of aortic valve without stenosis. Clinical correlation recommended. cc: MD Duke Olson MD
[2016-09-09] MEDS: ZOCOR PO SCH (21:01)
[2016-09-10] MEDS: ZOSYN 3.375 GM/NS 3.375 GM/50 ML IVPB IV SCH ×4 (03:45→23:51)
[2016-09-10] MEDS: SYNTHROID PO SCH (06:10)
[2016-09-10 06:58] LABS: BASO% 0.1 % (0.0-0.8); HEMATOCRIT 30.4 % (37.0-47.0); HEMOGLOBIN 10.6 g/dL (12.0-16.0); IMM GRAN# 0.21 X1000 (0.0-0.04); IMM GRAN% 1.8 % (0.0-0.5); LYMPH# 0.22 X1000 (1.2-3.4); LYMPH% 1.9 % (20.5-51.1); MANUAL DIFF NEEDED? YES; MCH 35.6 PG (27-31); MCHC 34.9 g/dL (33-37); MONO# 0.89 X1000 (0.11-0.59); MONO% 7.8 % (1.7-9.3); MPV 11.9 FL (7.4-10.4); NEUT% 88.4 % (42.2-75.2); PLT 55 X1000 (130-400); RBC 2.98 XMIL (4.2-5.4)
[2016-09-10 07:22] LABS: CALCIUM 10.5 mg/dL (8.8-10.2); POTASSIUM 2.7 mmol/L (3.5-5.1)
[2016-09-10 07:27] LABS: BANDS 4 % (0-1); LYMPHS 2 % (21-51); MONO 6 % (1-9)
[2016-09-10] MEDS: NORCO-5 PO PRN (07:46)
[2016-09-10] MEDS: ASPIRIN PO SCH (09:45)
[2016-09-10] MEDS: FLOMAX PO SCH (09:46)
[2016-09-10] MEDS: LOPRESSOR PO SCH ×2 (09:46→20:48)
[2016-09-10] MEDS: COZAAR PO SCH (09:46)
[2016-09-10] MEDS: FLAGYL PO SCH ×3 (09:46→17:03)
[2016-09-10] MEDS: PRILOSEC PO SCH ×2 (09:46→20:48)
[2016-09-10] MEDS: ZYLOPRIM PO SCH ×2 (09:46→20:48)
--- NOTE | 2016-09-10 14:08 | Diag Imaging Result Doc PS360 ---
EXAM: CT THORAX W/O CONTRAST INDICATION: sob TECHNIQUE: Dose reduction protocol was used. COMPARISON: CT PET scan dated 09/01/2016 FINDINGS: There are moderate emphysematous changes bilaterally. There is a 4.5 mm nodule in the right middle lobe on image 53 of series 3. It probably exhibits early calcification and likely represents a small granuloma. It is stable as compared to the very recent previous study. There is a punctate calcified granuloma at the right lung base. There are small bilateral pleural effusions and bibasilar atelectasis. There is severe mediastinal and hilar lymphadenopathy consistent with known lymphoma. The bulky justin masses are stable as compared to the recent PET/CT. There is extensive aortic and coronary artery calcification. Like the recent PET/CT, there is bulky axillary lymphadenopathy bilaterally. Review of the upper abdomen reveals a small amount of ascites tracking around the liver and spleen. There is extensive epigastric lymphadenopathy that is stable. IMPRESSION: 1.Interval development of small bilateral pleural effusions and bibasilar atelectasis. 2.Severe mediastinal, hilar, axillary, and epigastric lymphadenopathy consistent with known lymphoma that is essentially stable as compared to the recent PET/CT. 3.Small volume ascites tracking around the liver and spleen. 4.Other incidental/nonacute findings detailed above. Electronically signed by Primitivo Awan 09/10/2016 2:06 PM
--- NOTE | 2016-09-10 14:24 | PROGRESS NOTE ---
DATE: 09/10/2016 SUBJECTIVE: Patient report is still complaining of mild pain in the back. Some diarrhea noted today. OBJECTIVE: Vital Signs: Temperature 98.0 degrees, heart rate 91, respiratory rate 13, blood pressure 140/60, O2 saturation 97% on 4 L nasal cannula. General Examination: This is a chronically ill-looking, frail, 70-year-old female lying in bed, in no acute distress. HEENT: Head is normocephalic and atraumatic. Anicteric sclerae and pale conjunctivae. Mucous membranes moist. Neck: Supple. No JVD noted. No carotid bruits. No lymphadenopathy. No thyromegaly. Cardiovascular: S1, S2 heard. No murmurs, gallops, or rubs. Regular rate and rhythm. Respiratory: Clear bilaterally to auscultation. No work of breathing or using accessory muscles. Abdomen: Soft, nontender to palpation. Bowel sounds present. No organomegaly. Extremities: No clubbing, cyanosis, or edema. Peripheral pulses present in both legs. Neurological: Patient is a little more awake today. Moves 4 extremities. Follow commands. LABORATORY DATA: White cell count 11.46, hemoglobin 10.6, hematocrit 30.4, platelets 55,000. BMP remarkable for creatinine 1.6, potassium 2.7. ASSESSMENT AND PLAN: 1. Clostridium difficile infection. Patient is on Flagyl 500 mg p.o. 3 times per day, and she is getting better clinically with less bowel movements. We will continue with the same management. 2. Left ureteral stone with mild hydronephrosis. Dr. Brown from Urology has been consulted but they have declined any surgical intervention at this time. 3. Relapse of diffuse large B-cell lymphoma. Dr. Cottrell has been following this patient, they are planning to restart active treatment when the patient is more stable. 4. Paroxysmal atrial fibrillation with rapid ventricular response. The patient is now on back on sinus rhythm and she is on aspirin right now. Cardiology is following. 5. Positive troponins. Aware. 6. Severe hypercalcemia secondary to lymphoma. Patient is receiving some medications and also salmon calcitonin. Now patient is better we will continue with IV fluids. 7. Hypokalemia. We will replete potassium accordingly. 8. Acute respiratory failure. Patient's oxygen needs are getting higher and higher, from 1-2 L to 4 L today. Considering her history of cancer and the fact that she immunosuppressed because of this condition, that is why I prefer to have CT of the chest without contrast to see if there is any pneumonia there, and also V/Q scan because cancer, generally speaking, makes patients prone to develop blood clots. We will follow those exams closely. cc: Saulo Foreman MD
--- NOTE | 2016-09-10 14:28 | Diag Imaging Result Doc PS360 ---
EXAM: CHEST-2 VIEWS INDICATION: VQ scan TECHNIQUE: 2 views COMPARISON: 09/03/2016 FINDINGS: A right chest port is in stable position. Inspiration is suboptimal. There are bilateral trace effusions layering in the posterior costophrenic angles with adjacent atelectasis. There is no evidence of pneumothorax. There is stable marked mediastinal and hilar lymphadenopathy related to known lymphoma. Cardiac silhouette is unremarkable, otherwise. IMPRESSION: Trace bilateral effusions with adjacent atelectasis. Stable chest, otherwise. Electronically signed by Primitivo Awan 09/10/2016 2:26 PM
--- NOTE | 2016-09-10 15:47 | Diag Imaging Result Doc PS360 ---
LUNG SCAN / VQ - 09/10/2016 INDICATION: Dyspnea TECHNIQUE: 40.6 mCi of DTPA was used for inhalation. 6.1 mCi of MAA was used for injection. COMPARISON: Chest x-ray 09/10/2016 FINDINGS: There is a normal localization pattern of the radiotracers. No definite perfusion defects. IMPRESSION: Low probability for pulmonary embolism. Electronically signed by Tim Seals 09/10/2016 3:45 PM
[2016-09-10] MEDS: POTASSIUM CHLORIDE 60 MEQ in NS 500 ML IV SCH ×2 (16:00→20:49)
[2016-09-10] MEDS: NS 1,000 ML IV SCH (20:47)
[2016-09-10] MEDS: ZOCOR PO SCH (20:48)
[2016-09-11] MEDS: NS 1,000 ML IV SCH ×2 (03:39→17:25)
[2016-09-11] MEDS: ZOSYN 3.375 GM/NS 3.375 GM/50 ML IVPB IV SCH ×4 (05:05→23:12)
[2016-09-11] MEDS: SYNTHROID PO SCH (06:08)
[2016-09-11] MEDS: NORCO-5 PO PRN ×2 (06:34→10:15)
[2016-09-11 06:43] LABS: BASO% 0.2 % (0.0-0.8); EOS# 0.01 X1000 (0.0-0.7); EOS% 0.1 % (0.0-10.0); HEMATOCRIT 31.2 % (37.0-47.0); HEMOGLOBIN 10.7 g/dL (12.0-16.0); IMM GRAN# 0.25 X1000 (0.0-0.04); IMM GRAN% 2.1 % (0.0-0.5); LYMPH# 0.23 X1000 (1.2-3.4); LYMPH% 1.9 % (20.5-51.1); MANUAL DIFF NEEDED? YES; MCH 35.2 PG (27-31); MCHC 34.3 g/dL (33-37); MCV 102.6 FL (81-99); MONO# 1.45 X1000 (0.11-0.59); MONO% 11.9 % (1.7-9.3); NEUT% 83.8 % (42.2-75.2); PLT 49 X1000 (130-400); RBC 3.04 XMIL (4.2-5.4)
[2016-09-11 06:59] LABS: BANDS 6 % (0-1); LYMPHS 2 % (21-51); MONO 8 % (1-9); NRBC 1 % (0-0)
[2016-09-11 07:00] LABS: HYPOCHROM 1+
[2016-09-11 07:12] LABS: CALCIUM 10.8 mg/dL (8.8-10.2); POTASSIUM 4.4 mmol/L (3.5-5.1)
[2016-09-11] MEDS: LOPRESSOR PO SCH ×2 (10:15→23:11)
[2016-09-11] MEDS: COZAAR PO SCH (10:16)
[2016-09-11] MEDS: FLAGYL PO SCH ×3 (10:16→17:26)
[2016-09-11] MEDS: ASPIRIN PO SCH (10:16)
[2016-09-11] MEDS: PRILOSEC PO SCH ×2 (10:16→23:11)
[2016-09-11] MEDS: FLOMAX PO SCH (10:16)
[2016-09-11] MEDS: ZYLOPRIM PO SCH ×2 (10:17→23:12)
[2016-09-11] MEDS ORDERED: LASIX IV ONE (14:10)
--- NOTE | 2016-09-11 14:33 | PROGRESS NOTE ---
DATE: 09/11/2016 SUBJECTIVE: Patient reports no more diarrhea. Still complaining of mild back pain. No fever or chills reported. No abdominal pain. OBJECTIVE: Vital Signs: Temperature 98.1 degrees, heart rate 89, respiratory rate 18, blood pressure 120/51, O2 saturation 99% on 3 L nasal cannula. General Examination: This is a chronically ill-looking and frail, 70-year-old female lying in bed in no acute distress. HEENT: Head is normocephalic, atraumatic. Anicteric sclerae and pale conjunctivae. Mucous membranes moist. Neck: Supple. No JVD noted. No carotid bruits. No lymphadenopathy. No thyromegaly. Cardiovascular Exam: S1, S2 heard. No murmurs, gallops, or rubs. Regular rate and rhythm. Respiratory Exam: Clear bilaterally to auscultation. No work of breathing. No wheezing. Abdomen: Soft, nontender to palpation. A little bit distended. Bowel sounds present. No organomegaly. Extremities: No clubbing, cyanosis, or edema. Peripheral pulses present in both legs. Neurological Exam: Patient is alert, patient is a little more awake. Moves 4 extremities. LABORATORY DATA: 1. White cell count 12.8, hemoglobin 10.7, hematocrit 31.2, platelets 49. 2. Also, BMP remarkable for creatinine 1.6 and calcium 10.8. ASSESSMENT AND PLAN: 1. Clostridium difficile infection. Patient on Flagyl 500 mg three times per day. Clinically, she is getting better with no diarrhea anymore. We will continue with the same management by now. 2. Left ureteral stone with mild hydronephrosis. has been consulted, but family decided to just wait for passing of that stone. 3. Relapsed diffuse large B-cell lymphoma. Dr. Cottrell is following this patient here in the hospital. Plan to restart active treatment when patient is more stable. 4. Paroxysmal atrial fibrillation with rapid ventricular response. The patient is back to sinus rhythm. Cardiology is following. 5. Positive troponins. Aware. Most likely related to noncardiac issues like infection that this patient is facing. 6. Severe hypercalcemia secondary to lymphoma. Calcium getting better. We will continue with the same management. 7. Hypokalemia. That has been repleted and potassium is back to normal. 8. Acute respiratory failure. The oxygen needs for this patient has been ranging between 2 and 4 L. Because of suspicion for pulmonary embolism, a ventilation perfusion scan was requested which was negative, and also the CT of the chest reveals small bilateral pleural effusions. At this time I will definitely provide 1 dose of Lasix and we will see how this patient does. cc: Saulo Foreman MD MTDD
--- NOTE | 2016-09-11 14:39 | PROGRESS NOTE ---
DATE: 09/11/2016 SUBJECTIVE: Ms. Sevilla is lying in her hospital bed. Her daughter is at bedside. Ms. Sevilla does not participate in the interview mainly because she is rather tired and goes in and out of sleeping. Her does appear at bedside later on during the interview. Ms. Sevilla reports that she has no new complaints today. OBJECTIVE/VITAL SIGNS: Temperature 98.2 degrees, heart rate 86, respirations 18 , blood pressure 114/46, O2 saturation 99% on 3 L nasal cannula. LABORATORY: White blood cells 12.18, hemoglobin 10.7, hematocrit 31.2, platelets 49. Sodium 144, potassium 4.4, chloride 110, BUN is 53, creatinine is 1.6, glucose is 94, calcium is 10.8. Corrected calcium is about 11.7. PHYSICAL EXAMINATION: Cardiovascular: S1, S2 heard. No murmurs, gallops, rubs appreciated. Respiratory: Lungs sound clear to auscultation bilaterally anteriorly. Gastrointestinal: Abdomen is soft and nontender. Nondistended. Positive bowel sounds. Extremities: No bilateral extremity edema noted. ASSESSMENT AND PLAN: 1. Relapsed diffuse large B-cell lymphoma. Patient's most recent scans have progression of disease. The hope is that she will get well enough so that we can initiate treatment. However, patient does have rather aggressive disease. 2. Clostridium difficile. Patient will need to continue her current management. 3. Urinary tract infection. Patient will need to continue Zosyn. 4. Ureteral stone with mild hydronephrosis. She is status post urology consult. She will continue Flomax at this time. No intervention planned at this time. 5. Weakness and fatigue. Likely this is multifactorial. Definitely in part from her diffuse large B-cell lymphoma. Encouraged as much activity as possible. We will plan to sign off for now over the weekend. We will be available as needed. Will also be following peripherally. We will resume regular follow up on 09/14/2016. Dictated by TRACY Walker for Shayla Cottrell MD cc: Shayla Cottrell MD I have seen and examined the patient and agreed with the above assessment and plan. Chemotherapy to be reinstituted if and when she is able as an outpatient. Calcium slowly improving as is her mental status. Shayla Cottrell MD [facility]
[2016-09-11] MEDS: ZOCOR PO SCH (23:10)
[2016-09-11] MEDS: PERCOCET-10 PO PRN (23:19)
[2016-09-12] MEDS: ZOSYN 3.375 GM/NS 3.375 GM/50 ML IVPB IV SCH ×4 (04:42→21:52)
[2016-09-12] MEDS: NORCO-5 PO PRN (04:42)
[2016-09-12] MEDS: NS 1,000 ML IV SCH (04:46)
[2016-09-12 06:21] LABS: BASO% 0.1 % (0.0-0.8); HEMATOCRIT 29.7 % (37.0-47.0); HEMOGLOBIN 10.1 g/dL (12.0-16.0); IMM GRAN# 0.19 X1000 (0.0-0.04); IMM GRAN% 1.6 % (0.0-0.5); LYMPH# 0.23 X1000 (1.2-3.4); LYMPH% 1.9 % (20.5-51.1); MANUAL DIFF NEEDED? YES; MCH 35.1 PG (27-31); MCV 103.1 FL (81-99); MONO# 1.53 X1000 (0.11-0.59); MONO% 12.8 % (1.7-9.3); NEUT% 83.6 % (42.2-75.2); PLT 43 X1000 (130-400); RBC 2.88 XMIL (4.2-5.4)
[2016-09-12 06:26] LABS: CALCIUM 9.6 mg/dL (8.8-10.2); POTASSIUM 4.5 mmol/L (3.5-5.1)
[2016-09-12 06:46] LABS: BANDS 4 % (0-1); LYMPHS 2 % (21-51); MONO 12 % (1-9)
[2016-09-12] MEDS: SYNTHROID PO SCH (07:35)
[2016-09-12] MEDS: PERCOCET-10 PO PRN ×3 (07:35→21:50)
[2016-09-12] MEDS ORDERED: ATIVAN PO PRN (09:59)
[2016-09-12] MEDS: PRILOSEC PO SCH ×2 (10:00→21:51)
[2016-09-12] MEDS: ASPIRIN PO SCH (10:00)
[2016-09-12] MEDS: LOPRESSOR PO SCH ×2 (10:01→21:51)
[2016-09-12] MEDS: COZAAR PO SCH (10:01)
[2016-09-12] MEDS: FLOMAX PO SCH (10:01)
[2016-09-12] MEDS: FLAGYL PO SCH ×3 (10:01→18:16)
[2016-09-12] MEDS: ZYLOPRIM PO SCH ×2 (10:02→21:51)
[2016-09-12] MEDS ORDERED: LIPOSYN 20% 500 ML IV SCH (11:40)
[2016-09-12] MEDS: LASIX IV SCH ×2 (13:33→21:52)
[2016-09-12] MEDS: CLINIMIX E 4.25%-5% SOLUTION 1,000 ML IV SCH (13:33)
[2016-09-12 13:38] LABS: URINE CULTURE NEEDED? NO; URINE MICRO REVIEW NEEDED? NO; URINE SOURCE CATH
[2016-09-12 13:41] LABS: BILIRUBIN URINE NEGATIVE (NEGATIVE); BLOOD URINE NEGATIVE (NEGATIVE); COLOR YELLOW; GLUCOSE URINE NEGATIVE (NEGATIVE); LEUKOCYTES URINE NEGATIVE (NEGATIVE); NITRITE URINE NEGATIVE (NEGATIVE); PH URINE 5.5; PROTEIN URINE TRACE mg/dL (NEGATIVE); SP GRAVITY URINE 1.026; TURBIDITY URINE CLEAR (CLEAR); UROBILINOGEN URINE NORMAL (NORMAL)
[2016-09-12 13:43] LABS: UR EPITHELIAL CELLS <10 /HPF (<10); URINE BACTERIA NEGATIVE /HPF; URINE RBC <10 /HPF (<10); URINE WBC <10 /HPF (<10)
--- NOTE | 2016-09-12 14:41 | PROGRESS NOTE ---
DATE: 09/12/2016 SUBJECTIVE: Patient family report that she still has few bowel movements with diarrhea. Patient reports no complaints today. No fever or chills reported, no chest pain, no difficulty in breathing. OBJECTIVE: Vital Signs: Temperature 98.5 degrees, heart rate 69, respiratory rate 18, blood pressure 103/60, O2 saturation 94% 2 L nasal cannula. General Examination: This is a chronically ill-looking and frail 70-year-old female lying in bed in no acute distress. HEENT: Head is normocephalic, atraumatic. Anicteric sclerae and pale conjunctivae. Mucous membranes moist. Neck: Supple. No JVD noted. No carotid bruits. No lymphadenopathy. No thyromegaly. Cardiovascular: S1 and S2 heard. No murmurs, gallops, or rubs. Regular rate and rhythm. Respiratory: Clear bilaterally to auscultation. No work of breathing or using accessory muscles. Abdomen: Soft, nontender to palpation. A little bit distended. Bowel sounds present. No organomegaly. Extremities: No clubbing, cyanosis, or edema. Peripheral pulses present in both legs. Neurological: Patient is alert, awake, moves 4 extremities. LABORATORY DATA: White cell count is 11.94, hemoglobin 10.1, hematocrit 29.7, platelets 43,000. BMP remarkable for creatinine 1.6, sodium 146 and calcium 9.6. ASSESSMENT AND PLAN: 1. C diff infection. Currently this patient is on Flagyl 500 mg p.o. 3 times per day and that medication has been started 4 days ago. Patient still reporting some loose stool. Will continue with the same management. Patient's white cell count is normal. No fever. 2. Left ureteral stone with mild hydronephrosis. Urology has been consulted but family decided to just wait for passing that stone. 3. Relapsed diffuse large B-cell lymphoma. At this time Hematology/oncology has signed off. They are not planning to do any active treatment while this patient is here in the hospital. They will follow her as an outpatient. 4. Paroxysmal atrial fibrillation with rapid ventricular response. The heart rhythm is back normal sinus rhythm. Will continue monitoring heart rate with telemetry. 5. Severe hypercalcemia secondary to lymphoma. Calcium is finally back to normal. Will continue with same management. 6. Hypokalemia. That condition is completely improved. 7. Acute respiratory failure. Patient after she received Lasix for this pleural effusion patient is feeling better with oxygen needs back to her baseline. 8. Thrombocytopenia : No signs of bleeding. Most likely related to lymphoma. Will check CBC tomorrow and will transfuse platelets if needed. 9. Physical deconditioning, physical therapy is on board. cc: Saulo Foreman MD MTDD
[2016-09-12] MEDS: ZOCOR PO SCH (21:51)
[2016-09-13] MEDS: CLINIMIX E 4.25%-5% SOLUTION 1,000 ML IV SCH ×3 (01:34→17:51)
[2016-09-13] MEDS: ZOSYN 3.375 GM/NS 3.375 GM/50 ML IVPB IV SCH ×4 (04:10→23:41)
[2016-09-13] MEDS: SYNTHROID PO SCH (07:01)
[2016-09-13 07:17] LABS: BASO% 0.2 % (0.0-0.8); EOS# 0.01 X1000 (0.0-0.7); EOS% 0.1 % (0.0-10.0); HEMOGLOBIN 10.7 g/dL (12.0-16.0); IMM GRAN# 0.14 X1000 (0.0-0.04); IMM GRAN% 1.5 % (0.0-0.5); LYMPH# 0.52 X1000 (1.2-3.4); LYMPH% 5.5 % (20.5-51.1); MANUAL DIFF NEEDED? YES; MCH 38.6 PG (27-31); MCHC 36.9 g/dL (33-37); MCV 104.7 FL (81-99); MONO# 0.99 X1000 (0.11-0.59); MONO% 10.6 % (1.7-9.3); MPV 13.1 FL (7.4-10.4); NEUT% 82.1 % (42.2-75.2); RBC 2.77 XMIL (4.2-5.4)
[2016-09-13 07:28] LABS: CALCIUM 8.8 mg/dL (8.8-10.2)
[2016-09-13] MEDS: ASPIRIN PO SCH (08:23)
[2016-09-13] MEDS: PRILOSEC PO SCH ×2 (08:23→23:40)
[2016-09-13] MEDS: FLAGYL PO SCH ×2 (08:23→12:04)
[2016-09-13] MEDS: COZAAR PO SCH (08:23)
[2016-09-13] MEDS: FLOMAX PO SCH (08:23)
[2016-09-13] MEDS: LASIX IV SCH ×2 (08:24→23:37)
[2016-09-13] MEDS: LOPRESSOR PO SCH ×2 (08:24→23:38)
[2016-09-13] MEDS: PERCOCET-10 PO PRN (08:24)
[2016-09-13] MEDS: ZYLOPRIM PO SCH ×2 (08:25→23:40)
[2016-09-13 08:45] LABS: BANDS 4 % (0-1); LYMPHS 4 % (21-51); MONO 6 % (1-9); NRBC 1 % (0-0)
[2016-09-13] MEDS: LIPOSYN 20% 250 ML IV SCH (10:47)
[2016-09-13] MEDS: NORCO-5 PO PRN (12:03)
[2016-09-13 12:06] LABS: PLT 37 X1000 (130-400)
[2016-09-13] MEDS: VANCOMYCIN ORAL SOLN PO SCH ×2 (14:32→23:37)
--- NOTE | 2016-09-13 14:38 | Diag Imaging Result Doc PS360 ---
EXAM: HEAD W/O CONTRAST - 09/13/2016 HISTORY: sleepy, low platelets, rule out intracranial bleed TECHNIQUE: Dose reduction protocol COMPARISON: None. FINDINGS: There is no evidence of intracranial hemorrhage, mass effect, midline shift, or hydrocephalus. There are mild chronic appearing microvascular ischemic changes. There is no indication of recent infarct, although acute infarcts may not be immediately visible. There is focal opacification of the posterior superior most portion of the right nasal cavity noted. IMPRESSION: No visible acute intracranial abnormality. No intracranial hemorrhage or mass effect. There is focal opacification the posterior superior most portion of the right nasal cavity noted. Electronically signed by Pedro Whalen 09/13/2016 2:35 PM
--- NOTE | 2016-09-13 16:23 | PROGRESS NOTE ---
DATE: 09/13/2016 SUBJECTIVE: The patient is a little bit more lethargic, does not answer basic questions. No acute issues reported by the nursing staff, overnight. OBJECTIVE: Vital Signs: Temperature 97.9 degrees, heart rate 77, respiratory rate 18, blood pressure 103/55. O2 saturation 100% on 2 L nasal cannula. General Examination: This is a chronically ill-looking, frail, 70-year-old female lying in bed, in no acute distress. HEENT: Head is normocephalic, atraumatic. Anicteric sclerae and pale conjunctivae. Mucous membranes moist. Neck: Supple. No JVD noted. No carotid bruits. No lymphadenopathy. No thyromegaly. Cardiovascular: S1, S2 heard. No murmurs, gallops, or rubs. Regular rate and rhythm. Respiratory: Clear bilaterally to auscultation. No work of breathing or using accessory muscles. Abdomen: Soft, nontender to palpation. Bowel a little bit distended with bowel sounds present. No organomegaly. Extremities: No clubbing, cyanosis, or edema. Peripheral pulses present in both legs. Neurological: Patient is more sleepy today, does not follow commands. LABORATORY DATA: White cell count 9.37, hemoglobin 10.7, hematocrit 29, platelets 37,000 with BMP remarkable for creatinine 1.8 and calcium is 8.8. ASSESSMENT AND PLAN: 1. Clostridium difficile colitis. Patient is on Flagyl 700 mg 3 times per day and the patient is still having diarrhea, so we prefer to switch this medication to vancomycin tomorrow and see how she does. 2. Left ureteral stone with mild hydronephrosis. Urology has been consulted, but family decided to wait for the stone to just pass out. 3. Relapsed diffuse large B-cell lymphoma. Hematology/Oncology signed off and they are not planning to do anything until this patient is more recovered. 4. Thrombocytopenia, most likely related to lymphoma. No signs of overt bleeding, but because this patient is more lethargic, we prefer to check a CT of the head without contrast to see if there is any bleeding. 5. Paroxysmal atrial fibrillation. Heart rhythm is back to normal. 6. Hypokalemia, resolved. 7. Acute respiratory failure. Patient on oxygen supplementation at her baseline. 8. Bilateral pleural effusions. The patient is on Lasix. 9. Physical deconditioning. Patient is working with physical therapy. cc: Saulo Foreman MD
[2016-09-13] MEDS: ZOCOR PO SCH (23:38)
[2016-09-14] MEDS: VANCOMYCIN ORAL SOLN PO SCH ×4 (02:36→21:53)
[2016-09-14] MEDS: CLINIMIX E 4.25%-5% SOLUTION 1,000 ML IV SCH ×3 (04:21→23:45)
[2016-09-14] MEDS: ZOSYN 3.375 GM/NS 3.375 GM/50 ML IVPB IV SCH (04:21)
[2016-09-14] MEDS: SYNTHROID PO SCH (06:53)
[2016-09-14 07:03] LABS: BASO% 0.2 % (0.0-0.8); EOS# 0.02 X1000 (0.0-0.7); EOS% 0.2 % (0.0-10.0); HEMATOCRIT 27.3 % (37.0-47.0); HEMOGLOBIN 9.4 g/dL (12.0-16.0); IMM GRAN# 0.14 X1000 (0.0-0.04); IMM GRAN% 1.5 % (0.0-0.5); LYMPH# 0.33 X1000 (1.2-3.4); LYMPH% 3.6 % (20.5-51.1); MANUAL DIFF NEEDED? YES; MCH 35.6 PG (27-31); MCHC 34.4 g/dL (33-37); MCV 103.4 FL (81-99); MONO# 0.64 X1000 (0.11-0.59); NEUT% 87.5 % (42.2-75.2); RBC 2.64 XMIL (4.2-5.4)
[2016-09-14 07:06] LABS: PLT 24 X1000 (130-400)
[2016-09-14 07:15] LABS: CALCIUM 8.9 mg/dL (8.8-10.2); POTASSIUM 3.7 mmol/L (3.5-5.1)
[2016-09-14 07:16] LABS: BANDS 6 % (0-1); LARGE PLATELETS 1+; LYMPHS 2 % (21-51); NRBC 4 % (0-0)
--- NOTE | 2016-09-14 08:01 | Diag Imaging Result Doc PS360 ---
EXAM: CHEST-2 VIEWS INDICATION: pleural effusion TECHNIQUE: 2 views COMPARISON: 09/10/2016 FINDINGS: Right chest port is in stable position the tip projecting over the region of the right atrium. The lungs are grossly clear. At least no large pleural fluid collection is appreciated. There is probably mild blunting of posterior costophrenic angle similar to the previous study suggesting very small effusions. There is stable bulky mediastinal and hilar lymphadenopathy. Cardiac silhouette is stable. IMPRESSION: Stable chest. Electronically signed by Primitivo Awan 09/14/2016 7:58 AM
[2016-09-14] MEDS: PERCOCET-10 PO PRN (08:06)
[2016-09-14] MEDS: LASIX IV SCH ×2 (09:14→22:00)
[2016-09-14] MEDS: MERREM 1 GM in NS 50 ML IV SCH ×3 (09:34→23:42)
[2016-09-14] MEDS ORDERED: ATIVAN IV ONE (10:56)
[2016-09-14] MEDS ORDERED: NS 250 ML IV SCH (11:04)
[2016-09-14] MEDS ORDERED: ATIVAN IV PRN (11:43)
[2016-09-14] MEDS: MORPHINE IV PRN ×2 (12:46→23:41)
[2016-09-14] MEDS: LOPRESSOR PO SCH ×2 (12:51→21:53)
[2016-09-14] MEDS: PRILOSEC PO SCH ×2 (12:51→21:54)
[2016-09-14] MEDS: ASPIRIN PO SCH (12:52)
[2016-09-14] MEDS: COZAAR PO SCH (12:52)
--- NOTE | 2016-09-14 14:04 | PROGRESS NOTE ---
DATE: 09/14/2016 SUBJECTIVE: Patient continues to decline and is more lethargic today. This morning I was paged because this patient start becoming very restless and trying to pull out all IV lines. OBJECTIVE: Vital Signs: Temperature 97.7 degrees, heart rate 104, respiratory rate 20, blood pressure 93/50, O2 saturation 97% 2 L nasal cannula. General: This is a chronically ill-looking and frail 70-year-old female lying in bed in no acute distress. HEENT : Head is normocephalic, atraumatic. Anicteric sclerae and pale conjunctivae. Mucous membranes dry. Neck: Supple. No JVD noted. No carotid bruits. No lymphadenopathy. No thyromegaly. Cardiovascular: S1, S2 heard. No murmurs, gallops, or rubs. Regular rate and rhythm. Respiratory: Clear bilaterally to auscultation. No work of breathing or using accessory muscles. Abdomen: Soft, nontender to palpation. The abdomen is a little bit distended. No organomegaly. No signs of peritoneal irritation. Extremities: No clubbing, cyanosis, edema. Peripheral pulses present in both legs. Neurological: The patient is restless upon my examination, moves 4 extremities spontaneously but she does not answer any questions. LABORATORY DATA: White cell count 9.13, hemoglobin 10.4, hematocrit 27.3, platelets 24,000. BMP remarkable for creatinine 1.5. ASSESSMENT AND PLAN: 1. Clostridium difficile colitis. Patient was on Flagyl 500 mg 3 times per day since day after admission and since then she is still having diarrhea. Patient has been started on vancomycin oral yesterday but is still have increased diarrhea. We are continue with the same management by now. 2. Altered mental status. I think this is multifactorial because of pleural hospitalization. Also because of patient is elder patient. In any case will provide Ativan p.r.n. to agitation. 3. Severe thrombocytopenia. Patient platelets has been trending down slowly and yesterday was 37 and today is 24. There is no signs of bleeding noted per nursing staff. In any case we prefer to request for 2 units of platelets. 4. Relapse diffuse large B-cell lymphoma. Hematology has signed off because the plan to do active treatment for this condition when the patient is definitely more stable which is not as of now. 5. Paroxysmal atrial fibrillation. Heart rhythm is back to normal. 6. Hypokalemia resolved. 7. Acute respiratory failure. Patient is requiring 2 L of oxygen by nasal cannula. At this point we are continue with the same management. 8. Bilateral pleural effusion. Patient is on Lasix IV 40 mg b.i.d. 9. Physical deconditioning. Patient because of mental status not able to work with physical therapy. Overall this patient is not doing good. Patient admitted for kidney stones and Clostridium difficile colitis that is not resolving. She is still having diarrhea, she is not spiking any fever. Now the platelets are getting down. Because of change in mental status yesterday we decided to do a CT of the head which basically ruled out any intracranial bleeding. In any case I have talked with the who prefers to keep the patient comfortable but continues to try with active treatment. He decided to change status to DNR level 1. If diarrhea does not resolve next 2 days I think will be reasonable to talk with family about withdrawal of care. Will see what happens. cc: Saulo Foreman MD MTDD
[2016-09-14] MEDS: LIPOSYN 20% 250 ML IV SCH (14:54)
--- NOTE | 2016-09-14 16:19 | PROGRESS NOTE ---
DATE: 09/14/2016 SUBJECTIVE: Ms Sevilla is lying in bed with a family member at bedside. Ms. Sevilla looks rather agitated is writhing around. She does not speak nor open her eyes to my voice. OBJECTIVE: Vital Signs: Temperature 97.6 degrees, heart rate 89, respirations 20, blood pressure 132/55, O2 saturation 96% on 2 L nasal cannula. LABS: White blood cells 9.13, hemoglobin 9.4, hematocrit 27.3, platelets 24, 000. Sodium 143, potassium 3.7, chloride 109, CO2 16, BUN 78, creatinine 1.5, glucose 160. Reports is a chest x- ray stable. Head CT shows a focal opacification on the posterior superior most portion in the right nasal cavity. PHYSICAL EXAM: CV: S1, S2 heard. No murmurs, gallops, rubs appreciated. Respiratory: Chest sounds clear to auscultation bilaterally. Normal respiratory effort. Gastrointestinal: Abdomen is soft and nondistended. Extremities: No edema noted. Neurologic: The patient does not open her eyes and does not respond to stimulation at this time. ASSESSMENT AND PLAN: 1. Relapsed diffuse large B-cell lymphoma. The patient has aggressive disease. It seems like her performance status has drastically declined since we last saw her on Wednesday. Agree with continued efforts to keep the patient comfortable as possible. Will continue to follow along. 2. Clostridium difficile. The patient has now been transitioned to p.o. vancomycin. However, per nursing staff the patient is not able to swallow any of her oral medications at this time. 3. Agitation. Head CT with no new findings. She does have area in the right nasal cavity the has been previously suspicious for possible lymphoma. The patient is in no condition to proceed with any further evaluation in regards to central nervous system involvement with her lymphoma. Continue to keep the patient comfortable. 4. Thrombocytopenia. Agree with giving 2 units of platelets at this time. Will go ahead and check a heparin antibodies as the patient did receive Lovenox during this hospitalization. Also check a DIC panel. Further recommendations once those results have come back. 5. Hypercalcemia of malignancy. This has improved and is normal 8.9 today. Patient is status post Zometa x1. 6. Disposition. The patient's overall status seems to have declined over the last 48 hours. Continue all current management. Patient is now do not resuscitate level 1. Will follow up on lab results as they come back. Dictated by TRACY Walker for Sahyla Cottrell MD cc: Shayla Cottrell MD I have seen and examined the patient and agree with the above A/P. Shayla Cottrell MD. [facility]
[2016-09-14 18:22] LABS: PROTIME 10.5 Seconds (9.2-11.7); PTT 32.8 Seconds (22.0-36.0)
[2016-09-15] MEDS: VANCOMYCIN ORAL SOLN PO SCH ×3 (01:40→15:08)
[2016-09-15] MEDS: SYNTHROID PO SCH (06:55)
[2016-09-15] MEDS: MORPHINE IV PRN ×4 (06:59→23:08)
[2016-09-15 07:09] LABS: BASO% 0.1 % (0.0-0.8); EOS# 0.05 X1000 (0.0-0.7); EOS% 0.7 % (0.0-10.0); HEMATOCRIT 24.4 % (37.0-47.0); HEMOGLOBIN 8.4 g/dL (12.0-16.0); IMM GRAN# 0.06 X1000 (0.0-0.04); IMM GRAN% 0.8 % (0.0-0.5); LYMPH# 0.31 X1000 (1.2-3.4); LYMPH% 4.1 % (20.5-51.1); MANUAL DIFF NEEDED? YES; MCH 35.7 PG (27-31); MCHC 34.4 g/dL (33-37); MCV 103.8 FL (81-99); MONO% 6.6 % (1.7-9.3); NEUT% 87.7 % (42.2-75.2); PLT 78 X1000 (130-400); RBC 2.35 XMIL (4.2-5.4)
[2016-09-15 07:40] LABS: BANDS 2 % (0-1); LYMPHS 6 % (21-51); MONO 4 % (1-9)
[2016-09-15 07:59] LABS: CALCIUM 9.1 mg/dL (8.8-10.2); POTASSIUM 3.7 mmol/L (3.5-5.1)
[2016-09-15] MEDS: MERREM 1 GM in NS 50 ML IV SCH (08:19)
[2016-09-15] MEDS: LIPOSYN 20% 250 ML IV SCH (08:19)
[2016-09-15] MEDS: LASIX IV SCH (08:19)
[2016-09-15] MEDS: COZAAR PO SCH (08:20)
[2016-09-15] MEDS: ASPIRIN PO SCH (08:20)
[2016-09-15] MEDS: LOPRESSOR PO SCH (08:20)
[2016-09-15] MEDS: CLINIMIX E 4.25%-5% SOLUTION 1,000 ML IV SCH ×2 (08:31→09:00)
--- NOTE | 2016-09-15 12:52 | PROGRESS NOTE ---
DATE: 09/15/2016 SUBJECTIVE: Ms. Sevilla is lying in the hospital bed. She is much more alert today. She opens her eyes, responds to questions. She reports that she is in no pain. Her daughter is at bedside. OBJECTIVE: Vital Signs: Temperature 98.8 degrees, heart rate 89, respirations 16, blood pressure 106/60, O2 saturation 94% on 2 L nasal cannula. LABORATORY: White blood cells 7.53, hemoglobin 8.4, hematocrit 24.4, platelets 78,000. Sodium 141, potassium 3.7, chloride 105, CO2 19. BUN 83, creatinine 1.4, glucose 137. PHYSICAL: CV: S1, S2 heard. Regular rate and rhythm. Respiratory: Chest is clear to auscultation bilaterally. Normal respiratory effort. Gastrointestinal: Abdomen is nondistended. Positive for bowel sounds. Extremities: Patient now has some trace bilateral extremity edema but does not extend past her ankles. ASSESSMENT AND PLAN: 1. Relapsed diffuse large B-cell lymphoma. The patient's performance status has declined over the weekend. She is currently receiving medications to keep her comfortable. We agree with this current plan. We will continue to follow along and provide assistance as needed. 2. Thrombocytopenia. This has now improved after 2 units of platelets yesterday. DIC panel negative. 3. C diff. Patient has been transitioned to p.o. vanc but is unable to swallow at this time. 4. Hypercalcemia of malignancy. This has now resolved. 5. Disposition. We do agree with continuing comfort measures at this time. The patient is unable to swallow so agree with holding p.o. medications as well. Dictated by TRACY Walker for Shayla Cottrell MD cc: Shayla Cottrell MD I have seen and examined the patient and agree with the above A/P. Shayla Cottrell MD. KRISTOPHER
[2016-09-15] MEDS: PRILOSEC PO SCH (15:08)
[2016-09-15] MEDS ORDERED: CALAMINE LOTION TOP PRN (15:28)
[2016-09-15] MEDS ORDERED: CALMOSEPTINE OINTMENT TOP PRN (15:29)
--- NOTE | 2016-09-15 15:32 | PROGRESS NOTE ---
DATE: 09/15/2016 Today Ms. Sevilla continues to be stable without any complaint. She is actually nonverbal. The and the kids were there at the time of the encounter. OBJECTIVE: Vital signs: Blood pressure is 106/60, pulse of 89, respirations 16, temperature is 98.8 degrees. General: Ms. Sevilla is a 70-year-old female. She is in bed, seems to be in mild respiratory distress. HEENT: Mucosa is slightly pale. Anicteric. Acyanotic. Neck: Supple. Chest: Air entry is bilaterally reduced. A few bibasilar crepitations. Cardiovascular: Regular rate and rhythm. Abdomen: Soft. Extremities: No pedal edema. CALIBRATION ENGINEER: Patient is awake, but nonverbal. Will move extremities to painful stimulation but does not answer any questions. LABORATORY DATA: WBC 7.53, hemoglobin is 8.4, platelet count is 78,000. Chemistry is reviewed. Creatinine is 1.4. A chest x-ray which was done yesterday shows no large pleural effusion, probably might blunting posterior costophrenic angle similar to previous studies. A CT scan of the chest was done on the which shows severe mediastinal hilar axillary and epigastric lymphadenopathy consistent with known lymphoma. ASSESSMENT: 1. Clostridium difficile colitis. 2. Altered mental status. 3. Anemia with thrombocytopenia and macrocytosis likely due to bone marrow invasion. 4. Relapsed diffuse large B-cell lymphoma. 5. Paroxysmal atrial fibrillation. 6. Bilateral pleural effusion. 7. Comfort care measures. 8. Poor prognosis. 9. Acute on chronic kidney disease. So today, Ms. Sevilla continues to be the same, nonverbal. We spoke extensively with the family members. At this point, their decision is to keep Ms. Sevilla as comfortable as possible and they requested hospice consult. We will therefore consult social work for hospice evaluation. At this point in time, we are going to discontinue all the current antibiotics and other medications since it does not seem to be off any therapeutic benefit. cc: Mayur Zhou MD
[2016-09-15] MEDS ORDERED: ATIVAN IV PRN (15:35)
[2016-09-15 20:58] VITALS: BP 98/47
--- NOTE | 2016-09-17 05:17 | DISCHARGE SUMMARY ---
ADMISSION DATE: 09/07/2016 DISCHARGE DATE: 09/15/2016 CONSULTATIONS: 1. Dr. Shayla Cottrell, Hematology/Oncology. 2. Dr. Duke Cunningham with cardiology. 3. Dr. Scott Brown with Neurology. DIAGNOSTIC STUDIES: 1. Head and neck ultrasound showed heterogeneous thyroid gland but no thyroid masses extensive, subclavicular and cervical lymphadenopathy as documented on prior PET scan. 2. Echocardiogram showed an EF of 68% with focal area of wall motion abnormality involving the basal inferior wall. 3. Chest CT showed interval development of small bilateral pleural effusion and bibasilar atelectasis, severe mediastinal hilar and axillary and epigastric lymphadenopathy consistent with Diffuse B cell lymphoma essentially stable compared to recent PET-CT. Small volume ascites tracing around the liver spleen. 4. V/Q scan showed a low probability for PE. 5. Head CT showed no visible acute intracranial abnormality. No intracranial hemorrhage or mass effect. Focal opacification of the posterior superior most portion of the right nasal cavity noted. DISCHARGE DIAGNOSES: 1. Clostridium difficile colitis. 2. Altered mental status. 3. Anemia with thrombocytopenia macrocytosis likely due to bone marrow invasion. 4. diffuse large B-cell lymphoma. 5. Paroxysmal atrial fibrillation. 6. Bilateral pleural effusion. 7. Acute on chronic kidney disease. 8. Bilateral pleural effusions. 9. Poor prognosis. 10. DNR level 1. Comfort measures into inpatient hospice with [facility]. HOSPITAL COURSE: Ms. Sevilla is a 70-year-old female, who is currently being treated for diffuse large B-cell lymphoma with Dr. Cottrell. She had recently had mildly elevated calcium in Dr. Cottrell's office at 10.5 and returned to the office for some IV hydration. She subsequently presented to the ED complaining of lower abdominal pain as well as back pain. She was found to have a UTI and started on IV antibiotics. She did have a CT scan that showed colitis as well as a 5 mm urethral stone. At that time, she was discharged from the ER to follow up as an outpatient. She re-presented to the ED again complaining of lower abdominal pain as well as right lower back pain and having muscle jerks. She was then again found to have a quite elevated calcium level of 14.3 upon admission as well as an elevated creatinine. EKG revealed a new onset of atrial fibrillation that she tested positive for C difficile. Again, she was initiated on IV antibiotics for a UTI and p.o. antibiotics for her C diff. IV fluids for her hypercalcemia as well as initiated on Zometa and a consult for Urology for her stone. A consult with Cardiology for her new onset atrial fibrillation. She also had an elevated troponin likely suggestive of supply demand mismatch demand ischemia for the possibility secondary due to her other comorbidities. She was initiated on aspirin therapy and given her fall risk they did not initiate any anticoagulation. At some point after her initial admission she did go into atrial fibrillation with RVR. When Cardiology did assess her, her heart rate was in the 50s and they did not start any AV justin blockers. Dr. Brown did see the patient however they declined any surgical intervention. The patient had an acute episode of respiratory failure. Her oxygen needs were increasing from 1-2 L to 4 L. She did undergo a V/Q scan that did not show any pulmonary embolism. They did a CT of the chest that did not show any pneumonia. Clinically, her diarrhea improved but began looking more weak and fatigued throughout her hospital stay. The patient had mental status changes. She became more restless and pulling out her IV's. They did a head CT to rule out any intracranial bleeding. I spoke at length with the family again. They preferred to keep the patient comfortable and to continue active treatment. She was changed to a DNR level 1. Her performance status declined over the weekend. She was placed on comfort measures only. Dr. Cottrell is in agreement with this. Yesterday, the patient's family requested hospice consult. They had spoken with [facility] and she has been switched over to inpatient hospice on 09/16/2016. I believe the care has been transferred over to Dr. Huerta at this time. Dictated by STEFANO Carrero for Mayur Zhou MD cc: MD Dr. Harry Hassan
== END 2016-09-15 23:29 | disposition hospice, inpatient (51) ==
LOC: SUPCPDRO → ED 09:36 → SUATTDRO 14:10 → 4N 14:10 → EDIPHOLD 14:45 → 3N 18:35
PROVIDERS: ATTEND Internal Medicine

== ENCOUNTER 2016-09-15 23:51 | Inpatient (IN) ==
[2016-09-16] MEDS ORDERED: CALMOSEPTINE OINTMENT TOP PRN (02:36)
[2016-09-16] MEDS ORDERED: ZOFRAN IV PRN (02:40)
[2016-09-16] MEDS ORDERED: ATROPINE 1 % OPHTH SOLN SL PRN (02:42)
[2016-09-16] MEDS: MORPHINE IV PRN ×4 (06:20→18:27)
[2016-09-17] MEDS: MORPHINE IV PRN ×6 (00:50→22:20)
--- NOTE | 2016-09-17 03:46 | HISTORY AND PHYSICAL ---
SUBJECTIVE: She is pleasant 70-year-old white female, a patient of Dr. Roberts. She was admitted on 09/07/2016, transferred to the hospice care on 09/16/2016 due to progression of the non- Hodgkin's lymphoma, with multiple comorbid condition. Most of the history was obtained from the patient's at the bedside, as well as the prior reports. Family decided to go for comfort care, and discontinued further aggressive interventions. During this hospital course, it was complicated by relapse of diffuse large cell lymphoma, associated with C. difficile colitis, as well as anemia, with significant thrombocytopenia. Her condition is worsening, with comfort measures, as per Dr. Zhou, hospitalist. The patient has been resting very well, awake with verbal stimulus. PAST MEDICAL HISTORY: Stage IV B-cell lymphoma, kidney stones, hyperlipidemia, hypothyroidism, gout, chronic kidney disease. PAST SURGICAL HISTORY: Hysterectomy, carpal tunnel surgery, back surgery x2, Port-A-Cath on the right side. SOCIAL HISTORY: , 2 children. Working at [employer]. No smoking, no alcohol. FAMILY HISTORY: Noncontributory. REVIEW OF SYSTEMS: No shortness of breath. No obvious pain. Unable to obtain. Patient is comfortably sleeping. MEDICATIONS: Atropine ophthalmic solution, lorazepam 1-2 mg IV q.1 p.r.n. pain, morphine sulfate 2-6 mg IV q.1, Zofran as needed. ALLERGIES: Not known. LIVING WILL: DNR. PHYSICAL EXAMINATION: VITAL SIGNS: Low-grade fever. Tachycardic. Blood pressure is 80/60. 94% on 2 L nasal cannula. GENERAL: Slightly pale. Not in respiratory distress. CHEST: Bilateral air entry. Port-A-Cath was present on the right side of the chest. ABDOMEN: Belly is soft, nontender. No signs of peritonitis. EXTREMITIES: No peripheral edema or cyanosis. No obvious neurological deficits noted. LABORATORY STUDIES: Last blood workup: CBC: White cell count 7.5, hematocrit 24, platelet count 78. SMA-7: Creatinine 1.4. Troponin was slightly positive. ASSESSMENT AND PLAN: A 70-year-old white female with diffuse large cell lymphoma, pancytopenia, C. difficile colitis, deconditioning, failure to improve. Continue on hospice care in the hospital. Living will, DNR. Oxygen as needed. Atropine for dry secretions. Lorazepam for agitation. Morphine for pain, nausea for Zofran. Discussed with the patient and at bedside. Continue present comfort care. cc: Edenilson Huerta MD
[2016-09-17] MEDS: ATIVAN IV PRN (10:26)
--- NOTE | 2016-09-17 20:38 | PROGRESS NOTE ---
DATE: 09/17/2016 SUBJECTIVE: The patient has been admitted for hospice care. Family was there at bedside along with veterans service representative. She is awake and a little bit of shortness of breath, not eating well, on oxygen. REVIEW OF SYSTEMS: None reported. OBJECTIVE: Vital signs: Afebrile. Tachycardic. Hemodynamics stable. 2 L of nasal cannula 96%. General: Pale, feeble, bedridden. Chest: Clear. Heart: Sounds are regular. Abdomen: Belly is soft, nontender. Good bowel sounds and port on the right side. Neurologic: No deficits. ASSESSMENT AND PLAN: A 70-year-old white female with end-stage B-cell large-cell lymphoma, admitted to [facility] for palliative services. Continue oxygen as needed, Ativan for anxiety, atropine for secretions and pain control with morphine. Family was there at the bedside. Palliative services along with spiritual care per the veterans service representative and will closely monitor. cc: Edenilson Huerta MD
[2016-09-18 05:14] VITALS: BP 87/36
[2016-09-18] MEDS: ATIVAN IV PRN ×2 (05:53→07:23)
[2016-09-18] MEDS: MORPHINE IV PRN ×4 (06:48→13:12)
--- NOTE | 2016-09-18 22:37 | DISCHARGE SUMMARY ---
ADMISSION DATE: 09/17/2016 DISCHARGE DATE: 09/18/2016 DATE OF ADMISSION: 09/17/2016. DATE OF : 09/18/2016. TIME OF : 15:04. FINAL DIAGNOSES: 1. Acute cardiopulmonary arrest due to end-stage B-cell large-cell lymphoma associated with pancytopenia. 2. Kidney stones. 3. Clostridium difficile colitis. 4. Hyperlipidemia. 5. Hypothyroidism. 6. Gout. 7. Chronic kidney disease. 8. Protein calorie malnutrition. BRIEF HISTORY: Please see the H and P that was done on 09/15/2016. In brief, she is a 70-year-old pleasant, white female who was admitted to the hospital from 09/07/2016 until 09/15/2016 under the hospitalist's service with diarrhea, pancytopenia, with recurrence of B-cell large-cell lymphoma. She has not been eating, declining and family decided to go to [facility]. Patient was admitted with [facility]. During this hospital course she was given oxygen, atropine, Ativan and morphine. Special care was given. Family was there at the bedside. She peacefully with family at bedside on 09/18/2016 at 15:04. The cause of the was due to cardiopulmonary arrest with recurrence of B-cell large-cell lymphoma with comorbid conditions as above. home arrangements were done. cc: Edenilson Huerta MD MTDD
== END 2016-09-18 14:00 | disposition expired ==
LOC: 3N 23:51
PROVIDERS: ADMIT Internal Medicine; ATTEND Internal Medicine